=== PATIENT | female | born 1950 | race American Indian/Alaskan Native ===

== ENCOUNTER 2016-12-13 14:02 | Outpatient (CLI) | payer MEDICARE ==
--- NOTE | 2016-12-13 14:54 | Ultrasound Report ---
ULTRASOUND RENAL BILATERAL HISTORY: Chronic kidney disease. TECHNIQUE: transabdominal ultrasound with color Doppler interrogation. FINDINGS: Both kidneys are slightly atrophic measuring 7-8 cm in length. There is no evidence for calculus, mass, hydronephrosis or perinephric fluid. No significant cystic disease. The bladder is partially empty but unremarkable. IMPRESSION: Chronic renal parenchymal disease. No obstructive uropathy.
== END 2016-12-13 14:03 | disposition home or self-care (01) ==
LOC: US 14:02
PROVIDERS: ATTEND Internal Medicine Nephrology
DX: R94.4 Abnormal results of kidney function studies (principal); I10 Essential (primary) hypertension; I73.9 Peripheral vascular disease, unspecified
CPT/HCPCS: 76770

== ENCOUNTER 2016-12-31 12:49 | Inpatient (IN) | payer MEDICARE ==
[2016-12-31] MEDS ORDERED: NACL 0.9% 500 ML 500 ML IV ONE (13:30)
[2016-12-31 14:15] LABS: Basophils % (Auto) 0.5 % (0.0-1.8); Eosinophils % (Auto) 0.3 % (0.0-4.3); Hematocrit 31.7 % (30.3-42.9); Hemoglobin 9.8 gm/dl (10.1-14.3); Mean Corpuscular HGB Conc 31 % (30-34); Mean Corpuscular Volume 78 fl (79-97); Platelet Count 251 K/mm3 (140-440); Red Blood Count 4.07 M/mm3 (3.65-5.03); Red Cell Distribution Width 17.1 % (13.2-15.2); White Blood Count 12.9 K/mm3 (4.5-11.0)
[2016-12-31 14:16] LABS: INR 1.13 (0.87-1.13)
[2016-12-31 14:24] LABS: Albumin 2.7 g/dL (3.9-5); Albumin/Globulin Ratio 0.5 %; BUN/Creatinine Ratio 17.33; Bilirubin,Total 0.4 mg/dL (0.1-1.2); Calcium 9.1 mg/dL (8.4-10.2); Chloride 95.7 mmol/L (98-107); Potassium 4.4 mmol/L (3.6-5.0); Total Protein 8.5 g/dL (6.3-8.2)
[2016-12-31 14:38] LABS: Mean Corpuscular Hemoglobin 24 pg (28-32)
--- NOTE | 2016-12-31 14:55 | XRay Report ---
Single view chest History: Possible sepsis. Findings: Low volume lungs. Normal cardiomediastinal silhouette. Trachea is midline. No consolidation, pneumothorax or pleural effusion. Impression: No acute cardiopulmonary findings.
[2016-12-31] MEDS ORDERED: VANCOMYCIN/NS 1 GM/250 ML 1 GM/250 ML BAG IV ONE (15:03)
--- NOTE | 2016-12-31 15:45 | Emergency Department Report ---
- General Chief Complaint: Wound/Laceration Stated Complaint: MAGGOT IN ORGANS Time Seen by Provider: 12/31/16 15:40 Source: family, EMS Mode of arrival: Wheelchair Limitations: Other - History of Present Illness Initial Comments: PATIENT BROUGHT BY EMS AFTER A VISIT BY A [facility] NURSE WHO SHE INDICATED THAT PATIENT NEED TO BE TRANSFER TO THE ER BECAUSE OF A WET GANGRENE OF THE RT FOOT. PATIENT IS ALREADY SCHEDULED BY DR LOPEZ FOR ABOVE KNEE AMBUTATION. -: Gradual, days(s) Location: other Extremity Location: Right: Foot (WET FOOT GANGRENE) Patient Tetanus UTD: Yes Associated Symptoms: nausea/vomiting, fever (PATIENT SENT BY [facility]ASC[facility] FOR ABOVE KNEE AMBUTATION, C/O LEFT FOOT TURNING BLACK). denies: loss of feeling/numbness , suspect foreign body present - Related Data Home Medications Medication Instructions Recorded Confirmed Last Taken Aspirin [Aspirin TAB] 325 mg PO QDAY 08/04/15 12/25/16 08/03/15 Atorvastatin Calcium [Lipitor] 20 mg PO QHS 08/04/15 12/25/16 08/03/15 Citalopram [celeXA] 20 mg PO DAILY 08/04/15 12/25/16 08/03/15 Colchicine 0.6 mg PO DAILY 08/04/15 12/25/16 08/03/15 Docusate Sodium [Colace CAP] 100 mg PO BID 08/04/15 12/25/16 Unknown Donepezil [Aricept] 5 mg PO QDAY 08/04/15 12/25/16 08/03/15 Ferrous Sulfate [Feosol 325 MG tab] 325 mg PO QDAY 08/04/15 12/25/16 08/03/15 Glimepiride [Amaryl] 2 mg PO BID 08/04/15 12/25/16 08/03/15 Insulin Detemir [Levemir VIAL] 35 unit SQ QHS 08/04/15 12/25/16 Unknown Linagliptin [Tradjenta] 5 mg PO QDAY 08/04/15 12/25/16 08/03/15 Losartan [Cozaar] 100 mg PO QDAY 08/04/15 12/25/16 08/03/15 Memantine HCl [Namenda] 10 mg PO BID 08/04/15 12/25/16 08/03/15 Multivit with Calcium,Iron,Min 1 tab PO DAILY 08/04/15 12/25/16 08/03/15 [Multiple Vitamins For Women] Pantoprazole [Protonix TAB] 40 mg PO QDAY 08/04/15 12/25/16 08/03/15 oxyCODONE [Roxicodone TAB] 10 mg PO QDAY 08/04/15 12/25/16 08/03/15 Cyclobenzaprine [Flexeril] 10 mg PO QDAY 12/25/16 12/25/16 Unknown Insulin Regular, Human [HumuLIN R] 0 unit SQ ACHS 12/25/16 12/25/16 Unknown Melatonin/Pyridoxine [Melatonin 3 3 mg PO QHS 12/25/16 12/25/16 Unknown mg Tablet] Promethazine HCl [Promethazine INJ] 25 mg IM Q6H PRN 12/25/16 12/25/16 Unknown Allergies Allergy/AdvReac Type Severity Reaction Status Date / Time No Known Allergies Allergy Unverified 08/04/15 08:20 ED Review of Systems ROS: Stated complaint: MAGGOT IN ORGANS Other details as noted in HPI Constitutional: fever Eyes: denies: eye pain, eye discharge, vision change Respiratory: no symptoms reported Cardiovascular: denies: chest pain, palpitations Gastrointestinal: nausea Genitourinary: denies: urgency, dysuria, discharge Neurological: denies: headache, weakness, paresthesias ED Past Medical Hx - Past Medical History Hx Hypertension: Yes Hx CVA: Yes Hx Diabetes: Yes Hx GERD: Yes Hx Renal Disease: Yes (CKD) Hx Asthma: Yes (gout) Hx HIV: No Additional medical history: hyperlipidemia, SAH, hypokalemia, diabetic neuropathy, aphasia, insomnia, gastric ulcer with hemorrhage. - Social History Smoking Status: Never Smoker Substance Use Type: None - Medications Home Medications: Home Medications Medication Instructions Recorded Confirmed Last Taken Type Aspirin [Aspirin TAB] 325 mg PO QDAY 08/04/15 12/25/16 08/03/15 History Atorvastatin Calcium [Lipitor] 20 mg PO QHS 08/04/15 12/25/16 08/03/15 History Citalopram [celeXA] 20 mg PO DAILY 08/04/15 12/25/16 08/03/15 History Colchicine 0.6 mg PO DAILY 08/04/15 12/25/1616 History Docusate Sodium [Colace CAP] 100 mg PO BID 08/04/15 12/25/16 Unknown History Donepezil [Aricept] 5 mg PO QDAY 08/04/15 12/25/16 08/03/15 History Ferrous Sulfate [Feosol 325 MG tab] 325 mg PO QDAY 08/04/15 12/25/16 08/03/15 History Glimepiride [Amaryl] 2 mg PO BID 08/04/15 12/25/16 08/03/15 History Insulin Detemir [Levemir VIAL] 35 unit SQ QHS 08/04/15 12/25/16 Unknown History Linagliptin [Tradjenta] 5 mg PO QDAY 08/04/15 12/25/16 08/03/15 History Losartan [Cozaar] 100 mg PO QDAY 08/04/15 12/25/16 08/03/15 History Memantine HCl [Namenda] 10 mg PO BID 08/04/15 12/25/16 08/03/15 History Multivit with Calcium,Iron,Min 1 tab PO DAILY 08/04/15 12/25/16 08/03/15 History [Multiple Vitamins For Women] Pantoprazole [Protonix TAB] 40 mg PO QDAY 08/04/15 12/25/16 08/03/15 History oxyCODONE [Roxicodone TAB] 10 mg PO QDAY 08/04/15 12/25/16 08/03/15 History Cyclobenzaprine [Flexeril] 10 mg PO QDAY 12/25/16 12/25/16 Unknown History Insulin Regular, Human [HumuLIN R] 0 unit SQ ACHS 12/25/16 12/25/16 Unknown History Melatonin/Pyridoxine [Melatonin 3 3 mg PO QHS 12/25/16 12/25/16 Unknown History mg Tablet] Promethazine HCl [Promethazine INJ] 25 mg IM Q6H PRN 12/25/16 12/25/16 Unknown History ED Physical Exam - General Limitations: Other (STROKE) General appearance: alert, in no apparent distress - Head Head exam: Present: atraumatic - Eye Eye exam: Present: normal appearance - Respiratory Respiratory exam: Present: normal lung sounds bilaterally. Absent: respiratory distress - Cardiovascular Cardiovascular Exam: Present: regular rate, normal rhythm. Absent: systolic murmur, diastolic murmur, rubs, gallop - GI/Abdominal GI/Abdominal exam: Present: soft. Absent: tenderness, guarding, rebound, rigid , pulsatile mass - Neurological Exam Neurological exam: Present: alert, CN II-XII intact (LEFT SIDED WEAKNESS CHRONIC DUE TO PREVIOUS STROKE) - Skin Skin exam: Present: warm ED Course Vital Signs 12/31/16 12/31/16 12/31/16 13:46 15:35 16:51 Temperature 99.4 F 98.1 F Pulse Rate 92 H 85 Respiratory 16 16 16 Rate Blood Pressure 150/75 154/71 [Left] O2 Sat by Pulse 99 99 99 Oximetry - Reevaluation(s) Reevaluation #1: 12/31/16 15:47 PATIENT IS ALERT AND IN NO ACUTE DISTRESS. ED Medical Decision Making - Lab Data Result diagrams: 12/31/16 13:44 12/31/16 13:44 - EKG Data Rate: normal - Radiology Data CXR WITH NO ACUTE ABNORMALITY - Medical Decision Making DISCUSS WITH GABRIELA MA WITH DR LOPEZ WHO CAME TO SEE THE PATIENT AND WANT THE PATIENT TO BE ADMITTED FOR IV ANTIBIOTICS AND TO PROCEED WITH SURGERY SCHEDULED UNLESS CONDITION DETERIORATED. Critical care attestation.: If time is entered above; I have spent that time in minutes in the direct care of this critically ill patient, excluding procedure time. ED Disposition Clinical Impression: Gangrene of right foot Disposition: OP ADMIT IP TO THIS HOSP Is pt being admited?: Yes Does the pt Need Aspirin: No Condition: Fair Referrals: PRIMARY CARE, [Primary Care Provider] - 3-5 Days Time of Disposition: 17:32
--- NOTE | 2016-12-31 18:28 | Consultation ---
History of Present Illness - Reason for Consult Consult date: 12/31/16 Peripheral Vascular Disease with Right Lower Extremity Gangrene Requesting physician: GARRICK PATEL - History of Present Illness This patient is a 66-year-old female that presented to the emergency room with gangrenous changes to her right lower extremity. She has known peripheral arterial disease, and is scheduled for an [id number] amputation to be performed on 01/02/2017. The patient was noted to have a maggot infestation of her wounds, and was sent to the emergency room for further evaluation. She was noted have a leukocytosis and a vascular surgery consult has been requested to further evaluate. The patient is a poor historian, and the history has been taken from the patient 's family member at the bedside. She denies pain, but the family member states that she is uncomfortable with any manipulation. Past History Past Medical History: diabetes, hypertension, hyperlipidemia, PVD, stroke, other (dementia) Past Surgical History: Other (Right lower Hair angiography with atherectomy and angioplasty to the popliteal & the anterior tibial arteries) Social history: single. denies: smoking, alcohol abuse Family history: diabetes Medications and Allergies Allergies Allergy/AdvReac Type Severity Reaction Status Date / Time No Known Allergies Allergy Unverified 08/04/15 08:20 Home Medications Medication Instructions Recorded Confirmed Last Taken Type Aspirin [Aspirin TAB] 325 mg PO QDAY 08/04/15 12/31/16 08/03/15 History Atorvastatin Calcium [Lipitor] 20 mg PO QHS 08/04/15 12/31/16 08/03/15 History Citalopram [celeXA] 20 mg PO DAILY 08/04/15 12/31/16 08/03/15 History Colchicine 0.6 mg PO DAILY 08/04/15 12/31/16 08/03/15 History Docusate Sodium [Colace CAP] 100 mg PO BID 08/04/15 12/31/16 Unknown History Donepezil [Aricept] 10 mg PO QDAY 08/04/15 12/31/16 08/03/15 History Ferrous Sulfate [Feosol 325 MG tab] 325 mg PO QDAY 08/04/15 12/31/16 08/03/15 History Glimepiride [Amaryl] 2 mg PO BID 08/04/15 12/31/16 08/03/15 History Insulin Detemir [Levemir VIAL] 35 unit SQ QHS 08/04/15 12/31/16 Unknown History Linagliptin [Tradjenta] 5 mg PO QDAY 08/04/15 12/31/16 08/03/15 History Memantine HCl [Namenda] 10 mg PO BID 08/04/15 12/31/16 08/03/15 History Multivit with Calcium,Iron,Min 1 tab PO DAILY 08/04/15 12/31/16 08/03/15 History [Multiple Vitamins For Women] Pantoprazole [Protonix TAB] 40 mg PO QDAY 08/04/15 12/31/16 08/03/15 History Cyclobenzaprine [Flexeril 10 MG 10 mg PO QDAY 12/25/16 12/31/16 Unknown History TAB] Insulin Regular, Human [HumuLIN R] 0 unit SQ ACHS 12/25/16 12/31/16 Unknown History Melatonin/Pyridoxine [Melatonin 3 3 mg PO QHS 12/25/16 12/31/16 Unknown History mg Tablet] Valsartan [Diovan] 160 mg PO BID tablet 01/04/17 Unknown Rx oxyCODONE /ACETAMINOPHEN [Percocet 1 tab PO Q6H PRN #7 tablet 01/04/17 Unknown Rx 5/325 mg] Active Meds: Active Medications Cefazolin Sodium (Ancef/Sterile Water 2 Gm/20 Ml) 2 gm in 20 mls @ 80 mls/hr IV PREOP NR PRN Reason: Protocol Stop: 01/02/17 23:59 Sodium Chloride (Nacl 0.9% 1000 Ml) 1,000 mls @ 42 mls/hr IV DIRECT GRETCHEN Review of Systems ROS unobtainable: due to mental status Exam - Constitutional General appearance: Present: no acute distress - EENT Eyes: Present: EOM intact ENT: hearing intact - Respiratory Respiratory effort: normal - Extremities Extremities: abnormal (is a contracted right knee she has extensive necrosis to the dorsum of her right foot including several toes there is a dark fluid- filled blister on the volar aspect of her foot she has a dark likely deep tissue injury to her right heel) - Psychiatric Psychiatric: appropriate mood/affect (flat affect), no intact judgment & insight - Additional findings Additional findings: Results - Labs CBC & Chem 7: 01/04/17 05:05 01/04/17 05:05 Assessment and Plan Patient clearly has gangrenous changes to her right lower extremity. She has a leukocytosis with a black fluid filled blister on the volar aspect of her right foot. Discussed with the emergency room physician, patient will be admitted to hospitalist service to begin antibiotics. An x-ray has been ordered to evaluate for gas gangrene. If present, her surgery may need to be moved up. Otherwise, we'll plan on surgery on Saturday as originally scheduled. - Patient Problems (1) Atherosclerosis of [place] arteries of the extremities with gangrene Current Visit: No Status: Acute Qualifiers: Peripheral atherosclerosis location: lower extremity Laterality: right Qualified Code(s): I70.261 - Atherosclerosis of [place] arteries of extremities with gangrene, right leg
--- NOTE | 2016-12-31 19:47 | XRay Report ---
FINAL REPORT PROCEDURE: XR FOOT 2V RT TECHNIQUE: RIGHT foot radiographs, AP and lateral views. Please note history states right foot, please note technologist did not suzette images for laterality. HISTORY: Gangrene, question gas. COMPARISON: No prior studies are available for comparison. FINDINGS: Fracture (s) and/or Dislocation(s): None . Alignment: Extension of the digits limits evaluation. Joint space(s): Mild diffuse narrowing of the distal interphalangeal joints. Narrowing of the tibiotalar joint. Soft tissues: Diffuse soft tissue swelling with moderate scattered foci of soft tissue air. Vascular calcification. Bone mineralization: Moderate osteopenia. Foreign bodies: None. Calcaneal spurring: None. IMPRESSION: Moderate osteopenia and degenerative change. Diffuse soft tissue swelling with scattered foci of soft tissue air. Consider cellulitis, with air concern is for possible more aggressive infection including gangrene/infection with gas-forming organism. With vascular calcification consider patient could be diabetic. Recommend further evaluation including CT scan or MRI if there is continued clinical concern and patient has no contraindication to MRI.
--- NOTE | 2016-12-31 22:03 | History and Physical Report ---
History of Present Illness Date of examination: 12/31/16 Date of admission: 12/31/16 17:43 Chief complaint: Right foot gangrene one week History of present illness: History of present illness: 66-year-old -S[place] female with multiple medical problems including hypertension insulin-dependent diabetes dementia peripheral arterial disease sent in from [facility] for gangrene of the right foot. His urine going on for 1 week. Patient was evaluated by vascular surgery in the ER. As per vascular surgery patient may need a below- knee amputation. No fever no chills. Review of Systems ROS: Stated complaint: MAGGOT IN ORGANS Other details as noted in HPI Review of System: Constitutional: no fever, no chills, no weight loss Ears, eyes, nose, mouth and throat: no nasal congestion, no nasal discharge, no sinus pressure, no vision change, no red eye. Neck: No neck pain or rigidity. Cardiovascular: No chest pain, no orthopnea, no palpitations, no leg swelling Respiratory: No shortness of breath, no cough, no congestion, no wheezing Gastrointestinal: no abdominal pain, no nausea, no vomiting Genitourinary : no dysuria, no hematuria Musculoskeletal: no joint swelling or muscle ache Integumentary: no rash, no pruritis Neurological: no parathesias, no numbness, no tingling Endocrine: no cold or heat intolerance, no polyuria or polydipsia Hematologic/Lymphatic: no easy bruising, no easy bleeding, no gland swelling Allergic/Immunologic: no urticaria, no angioedema. ED Past Medical Hx - Past Medical History Hx Hypertension: Yes Hx CVA: Yes Hx Diabetes: Yes Hx GERD: Yes Hx Renal Disease: Yes (CKD) Hx Asthma: Yes (gout) Hx HIV: No Additional medical history: hyperlipidemia, SAH, hypokalemia, diabetic neuropathy, aphasia, insomnia, gastric ulcer with hemorrhage. - Social History Smoking Status: Never Smoker Substance Use Type: None - Medications Home Medications: Home Medications Medication Instructions Recorded Confirmed Last Taken Type Aspirin [Aspirin TAB] 325 mg PO QDAY 08/04/15 12/25/16 08/03/15 History Atorvastatin Calcium [Lipitor] 20 mg PO QHS 08/04/15 12/25/16 08/03/15 History Citalopram [celeXA] 20 mg PO DAILY 08/04/15 12/25/16 08/03/15 History Colchicine 0.6 mg PO DAILY 08/04/15 12/25/16 08/03/15 History Docusate Sodium [Colace CAP] 100 mg PO BID 08/04/15 12/25/16 Unknown History Donepezil [Aricept] 5 mg PO QDAY 08/04/15 12/25/16 08/03/15 History Ferrous Sulfate [Feosol 325 MG tab] 325 mg PO QDAY 08/04/15 12/25/16 08/03/15 History Glimepiride [Amaryl] 2 mg PO BID 08/04/15 12/25/16 08/03/15 History Insulin Detemir [Levemir VIAL] 35 unit SQ QHS 08/04/15 12/25/16 Unknown History Linagliptin [Tradjenta] 5 mg PO QDAY 08/04/15 12/25/16 08/03/15 History Losartan [Cozaar] 100 mg PO QDAY 08/04/15 12/25/16 08/03/15 History Memantine HCl [Namenda] 10 mg PO BID 08/04/15 12/25/16 08/03/15 History Multivit with Calcium,Iron,Min 1 tab PO DAILY 08/04/15 12/25/16 08/03/15 History [Multiple Vitamins For Women] Pantoprazole [Protonix TAB] 40 mg PO QDAY 08/04/15 12/25/16 08/03/15 History oxyCODONE [Roxicodone TAB] 10 mg PO QDAY 08/04/15 12/25/16 08/03/15 History Cyclobenzaprine [Flexeril] 10 mg PO QDAY 12/25/16 12/25/16 Unknown History Insulin Regular, Human [HumuLIN R] 0 unit SQ ACHS 12/25/16 12/25/16 Unknown History Melatonin/Pyridoxine [Melatonin 3 3 mg PO QHS 12/25/16 12/25/16 Unknown History mg Tablet] Promethazine HCl [Promethazine INJ] 25 mg IM Q6H PRN 12/25/16 12/25/16 Unknown History Medications and Allergies Allergies Allergy/AdvReac Type Severity Reaction Status Date / Time No Known Allergies Allergy Unverified 08/04/15 08:20 Home Medications Medication Instructions Recorded Confirmed Last Taken Type Aspirin [Aspirin TAB] 325 mg PO QDAY 08/04/15 12/31/16 08/03/15 History Atorvastatin Calcium [Lipitor] 20 mg PO QHS 08/04/15 12/31/16 08/03/15 History Citalopram [celeXA] 20 mg PO DAILY 08/04/15 12/31/16 08/03/15 History Colchicine 0.6 mg PO DAILY 08/04/15 12/31/16 08/03/15 History Docusate Sodium [Colace CAP] 100 mg PO BID 08/04/15 12/31/16 Unknown History Donepezil [Aricept] 10 mg PO QDAY 08/04/15 12/31/16 08/03/15 History Ferrous Sulfate [Feosol 325 MG tab] 325 mg PO QDAY 08/04/15 12/31/16 08/03/15 History Glimepiride [Amaryl] 2 mg PO BID 08/04/15 12/31/16 08/03/15 History Insulin Detemir [Levemir VIAL] 35 unit SQ QHS 08/04/15 12/31/16 Unknown History Linagliptin [Tradjenta] 5 mg PO QDAY 08/04/15 12/31/16 08/03/15 History Losartan [Cozaar] 100 mg PO QDAY 08/04/15 12/31/16 08/03/15 History Memantine HCl [Namenda] 10 mg PO BID 08/04/15 12/31/16 08/03/15 History Multivit with Calcium,Iron,Min 1 tab PO DAILY 08/04/15 12/31/16 08/03/15 History [Multiple Vitamins For Women] Pantoprazole [Protonix TAB] 40 mg PO QDAY 08/04/15 12/31/16 08/03/15 History oxyCODONE [Roxicodone TAB] 10 mg PO QDAY 08/04/15 12/31/16 08/03/15 History Cyclobenzaprine [Flexeril] 10 mg PO QDAY 12/25/16 12/31/16 Unknown History Insulin Regular, Human [HumuLIN R] 0 unit SQ ACHS 12/25/16 12/31/16 Unknown History Melatonin/Pyridoxine [Melatonin 3 3 mg PO QHS 12/25/16 12/31/16 Unknown History mg Tablet] Promethazine HCl [Promethazine INJ] 25 mg IM Q6H PRN 12/25/16 12/31/16 Unknown History Exam - Physical Exam Narrative exam: Lying comfortable in bed - Constitutional Vitals: Temp Pulse Resp BP Pulse Ox 98.5 F 74 18 130/70 99 12/31/16 19:07 12/31/16 19:07 12/31/16 19:07 12/31/16 19:07 12/31/16 18:00 General appearance: Present: no acute distress, well-nourished - EENT Eyes: Present: PERRL ENT: hearing intact, clear oral mucosa - Neck Neck: Present: supple, normal ROM - Respiratory Respiratory effort: normal Respiratory: bilateral: CTA - Cardiovascular Heart rate: 80 Rhythm: regular (80) Heart Sounds: Present: S1 & S2. Absent: rub, click - Extremities Extremities: pulses symmetrical, No edema, abnormal (right foot dark and gangrenous up to the ankle) Peripheral Pulses: abnormal (weakly felt) - Abdominal General gastrointestinal: Present: soft, non-tender, non-distended, normal bowel sounds Female genitourinary: Present: normal - Rectal Rectal Exam: deferred - Integumentary Integumentary: Present: clear, warm, dry - Musculoskeletal Musculoskeletal: gait normal, strength equal bilaterally - Psychiatric Psychiatric: appropriate mood/affect, intact judgment & insight - Neurologic Neurologic: CNII-XII intact, moves all extremities - Allied Health Allied health notes reviewed: nursing Results - Labs CBC & Chem 7: 12/31/16 13:44 12/31/16 13:44 Labs: Laboratory Last Values WBC 12.9 K/mm3 (4.5-11.0) H 12/31/16 13:44 RBC 4.07 M/mm3 (3.65-5.03) 12/31/16 13:44 Hgb 9.8 gm/dl (10.1-14.3) L 12/31/16 13:44 Hct 31.7 % (30.3-42.9) 12/31/16 13:44 MCV 78 fl (79-97) L 12/31/16 13:44 MCH 24 pg (28-32) L 12/31/16 13:44 MCHC 31 % (30-34) 12/31/16 13:44 RDW 17.1 % (13.2-15.2) H 12/31/16 13:44 Plt Count 251 K/mm3 (140-440) 12/31/16 13:44 Lymph % (Auto) 10.8 % (13.4-35.0) L 12/31/16 13:44 Real % (Auto) 4.9 % (0.0-7.3) 12/31/16 13:44 Eos % (Auto) 0.3 % (0.0-4.3) 12/31/16 13:44 Baso % (Auto) 0.5 % (0.0-1.8) 12/31/16 13:44 Lymph # 1.4 K/mm3 (1.2-5.4) 12/31/16 13:44 Real # 0.6 K/mm3 (0.0-0.8) 12/31/16 13:44 Eos # 0.0 K/mm3 (0.0-0.4) 12/31/16 13:44 Baso # 0.1 K/mm3 (0.0-0.1) 12/31/16 13:44 Seg Neutrophils % 83.5 % (40.0-70.0) H 12/31/16 13:44 Seg Neutrophils # 10.8 K/mm3 (1.8-7.7) H 12/31/16 13:44 PT 14.4 Sec. (12.2-14.9) 12/31/16 13:44 INR 1.13 (0.87-1.13) 12/31/16 13:44 VBG pH 7.415 (7.320-7.420) 12/31/16 13:44 Sodium 137 mmol/L (137-145) 12/31/16 13:44 Potassium 4.4 mmol/L (3.6-5.0) 12/31/16 13:44 Chloride 95.7 mmol/L (98-107) L 12/31/16 13:44 Carbon Dioxide 25 mmol/L (22-30) 12/31/16 13:44 Anion Gap 21 mmol/L 12/31/16 13:44 BUN 26 mg/dL (7-17) H 12/31/16 13:44 Creatinine 1.5 mg/dL (0.7-1.2) H 12/31/16 13:44 Estimated GFR 42 ml/min 12/31/16 13:44 BUN/Creatinine Ratio 17.33 % 12/31/16 13:44 Glucose 381 mg/dL (65-100) H 12/31/16 13:44 Lactic Acid 2.50 mmol/L (0.7-2.0) H* 12/31/16 16:57 Calcium 9.1 mg/dL (8.4-10.2) 12/31/16 13:44 Total Bilirubin 0.40 mg/dL (0.1-1.2) 12/31/16 13:44 AST 34 units/L (5-40) 12/31/16 13:44 ALT 34 units/L (7-56) 12/31/16 13:44 Alkaline Phosphatase 233 units/L (35-129) H 12/31/16 13:44 Total Protein 8.5 g/dL (6.3-8.2) H 12/31/16 13:44 Albumin 2.7 g/dL (3.9-5) L 12/31/16 13:44 Albumin/Globulin Ratio 0.5 % 12/31/16 13:44 Assessment and Plan Advance Directives: Yes (full code) VTE prophylaxis?: Chemical Plan of care discussed with patient/family: Yes - Patient Problems (1) Gangrene of right foot Current Visit: Yes Status: Acute Plan to address problem: Patient will need a below-knee amputation. Discussed with vascular surgery Delon. We will start her on vancomycin and Unasyn. (2) Atherosclerosis of [place] arteries of the extremities with gangrene Current Visit: No Status: Acute Qualifiers: Peripheral atherosclerosis location: lower extremity Laterality: right Qualified Code(s): I70.261 - Atherosclerosis of [place] arteries of extremities with gangrene, right leg Plan to address problem: Patient needs a below-knee amputation for preservation of her life. (3) Anemia Current Visit: Yes Status: Chronic Qualifiers: Anemia type: A Iron deficiency anemia type: I Vitamin B12 deficiency anemia type: V Folate deficiency anemia type: F Bone marrow failure anemia type: B Hemolytic anemia type: H Other causes of anemia: O Chronic kidney disease stage: C Plan to address problem: Chronic anemia. Iron studies ordered. B12 and folic acid levels ordered (4) IDDM (insulin dependent diabetes mellitus) Current Visit: Yes Status: Chronic Plan to address problem: Continue Levemir 35 units subcutaneous at bedtime and oral hypoglycemics. We will stop glimepiride. We will increase the Levemir to 50 units subcutaneous daily at bedtime and regular insulin with each meal and coverage. Also check hemoglobin A1c. (5) Hypertension Current Visit: Yes Status: Chronic Qualifiers: Hypertension type: essential hypertension Qualified Code(s): I10 - Essential (primary) hypertension Plan to address problem: Continue losartan 100 mg once a day (6) Hyperlipidemia Current Visit: Yes Status: Chronic Qualifiers: Hyperlipidemia type: mixed hyperlipidemia Qualified Code(s): E78.2 - Mixed hyperlipidemia Plan to address problem: Continue atorvastatin 20 mg by mouth daily at bedtime (7) Depression Current Visit: Yes Status: Chronic Qualifiers: Depression Type: unspecified Major depression recurrence: M Active/ Remission status: A Major depression episode severity: M Psychotic features : P Trimester: T Qualified Code(s): F32.9 - Major depressive disorder, single episode, unspecified Plan to address problem: Continues citalopram 20 mg once a day (8) Dementia Current Visit: Yes Status: Chronic Qualifiers: Dementia type: vascular dementia Alzheimer's disease onset: A Dementia behavioral disturbance: D Plan to address problem: Continue Aricept 5 mg once a day and Namenda 10 mg twice a day. (9) Malnutrition of moderate degree Current Visit: Yes Status: Chronic Plan to address problem: Dietary consult requested albumin is 2.7 (10) DVT prophylaxis Current Visit: Yes Status: Acute Plan to address problem: Lovenox 40 mg subcutaneous daily
[2016-12-31] MEDS ORDERED: DULCOLAX PR PRN (22:13)
[2016-12-31] MEDS ORDERED: MILK OF MAGNESIA PO PRN (22:13)
[2016-12-31] MEDS ORDERED: AMBIEN PO PRN (22:13)
[2016-12-31] MEDS ORDERED: ZOFRAN IV PRN (22:13)
[2016-12-31] MEDS ORDERED: TYLENOL PO PRN (22:13)
[2016-12-31] MEDS: DILAUDID IV PRN (23:00)
[2016-12-31] MEDS: NACL 0.45% 1000 ML 1,000 ML IV SCH (23:05)
[2016-12-31] MEDS: PEPCID IV SCH (23:26)
[2017-01-01] MEDS: DILAUDID IV PRN ×4 (03:27→22:21)
[2017-01-01 05:42] LABS: Basophils % (Auto) 0.6 % (0.0-1.8); Eosinophils % (Auto) 0.9 % (0.0-4.3); Hematocrit 29.1 % (30.3-42.9); Hemoglobin 9.2 gm/dl (10.1-14.3); Mean Corpuscular HGB Conc 32 % (30-34); Mean Corpuscular Volume 76 fl (79-97); Platelet Count 238 K/mm3 (140-440); Red Blood Count 3.82 M/mm3 (3.65-5.03); White Blood Count 12.3 K/mm3 (4.5-11.0)
[2017-01-01 05:46] LABS: Mean Corpuscular Hemoglobin 24 pg (28-32)
[2017-01-01 06:02] LABS: Albumin 2.6 g/dL (3.9-5); Albumin/Globulin Ratio 0.5 %; BUN/Creatinine Ratio 16.66; Bilirubin,Total 0.4 mg/dL (0.1-1.2); Calcium 8.9 mg/dL (8.4-10.2); Chloride 102.8 mmol/L (98-107); Potassium 3.9 mmol/L (3.6-5.0); Total Protein 7.9 g/dL (6.3-8.2)
[2017-01-01] MEDS: NOVOLOG SUB-Q SCH ×4 (07:45→22:29)
--- NOTE | 2017-01-01 08:54 | Consultation ---
History of Present Illness - Reason for Consult Consult date: 01/01/17 acute renal failure, chronic renal failure - History of Present Illness Patient is a 66-year-old AAF with history significant for DM type 2, Hypertension. morbis Obesity, hyperlipidemia, SAH, Diabetic neuropathy, PUD, CVA with right sided hemiparesis, bedbound status, Dementia, PAD and [place] resident was sent from [facility] for gangrene of the right foot. Patient is a very poor historian and unable to obtain any information from her. On admission her creatinine was 1.5 and has improved to 1.2 today. Past History Past Medical History: diabetes, hypertension, hyperlipidemia, stroke Medications and Allergies Allergies Allergy/AdvReac Type Severity Reaction Status Date / Time No Known Allergies Allergy Unverified 08/04/15 08:20 Home Medications Medication Instructions Recorded Confirmed Last Taken Type Aspirin [Aspirin TAB] 325 mg PO QDAY 08/04/15 12/31/16 08/03/15 History Atorvastatin Calcium [Lipitor] 20 mg PO QHS 08/04/15 12/31/16 08/03/15 History Citalopram [celeXA] 20 mg PO DAILY 08/04/15 12/31/16 08/03/15 History Colchicine 0.6 mg PO DAILY 08/04/15 12/31/16 08/03/15 History Docusate Sodium [Colace CAP] 100 mg PO BID 08/04/15 12/31/16 Unknown History Donepezil [Aricept] 10 mg PO QDAY 08/04/15 12/31/16 08/03/15 History Ferrous Sulfate [Feosol 325 MG tab] 325 mg PO QDAY 08/04/15 12/31/16 08/03/15 History Glimepiride [Amaryl] 2 mg PO BID 08/04/15 12/31/16 08/03/15 History Insulin Detemir [Levemir VIAL] 35 unit SQ QHS 08/04/15 12/31/16 Unknown History Linagliptin [Tradjenta] 5 mg PO QDAY 08/04/15 12/31/16 08/03/15 History Losartan [Cozaar] 100 mg PO QDAY 08/04/15 12/31/16 08/03/15 History Memantine HCl [Namenda] 10 mg PO BID 08/04/15 12/31/1608/03/16 History Multivit with Calcium,Iron,Min 1 tab PO DAILY 08/04/15 12/31/16 08/03/15 History [Multiple Vitamins For Women] Pantoprazole [Protonix TAB] 40 mg PO QDAY 08/04/15 12/31/16 08/03/15 History oxyCODONE [Roxicodone TAB] 10 mg PO QDAY 08/04/15 12/31/16 08/03/15 History Cyclobenzaprine [Flexeril] 10 mg PO QDAY 12/25/16 12/31/16 Unknown History Insulin Regular, Human [HumuLIN R] 0 unit SQ ACHS 12/25/16 12/31/16 Unknown History Melatonin/Pyridoxine [Melatonin 3 3 mg PO QHS 12/25/16 12/31/16 Unknown History mg Tablet] Promethazine HCl [Promethazine INJ] 25 mg IM Q6H PRN 12/25/16 12/31/16 Unknown History Active Meds: Active Medications Acetaminophen (Tylenol) 650 mg PO Q4H PRN PRN Reason: Pain MILD(1-3)/Fever >100.5/WILLSON Atorvastatin Calcium (Lipitor) 20 mg PO QHS GRETCHEN Bisacodyl (Dulcolax) 10 mg [place] QDAY PRN PRN Reason: Constipation unrelieved by MOM Citalopram Hydrobromide (Celexa) 20 mg PO DAILY [facility] Docusate Sodium (Colace) 100 mg PO BID GRETCHEN Enoxaparin Sodium (Lovenox) 40 mg SUB-Q QDAY [facility] Famotidine (Pepcid) 20 mg IV BID [facility] Last Admin: 12/31/16 23:26 Dose: 20 mg Hydromorphone HCl (Dilaudid) 1 mg IV Q3H PRN PRN Reason: Pain , Severe (7-10) Last Admin: 01/01/17 03:27 Dose: 1 mg Sodium Chloride (Nacl 0.45% 1000 Ml) 1,000 mls @ 75 mls/hr IV DIRECT [facility] Last Admin: 12/31/16 23:05 Dose: 75 mls/hr Insulin Aspart (Novolog) 0 units SUB-Q ACHS GRETCHEN PRN Reason: Protocol Insulin Detemir (Levemir) 50 units SUB-Q QHS GRETCHEN Linagliptin (Tradjenta) 5 mg PO QDAY GRETCHEN Losartan Potassium (Cozaar) 100 mg PO QDAY GRETCH[facility] Magnesium Hydroxide (Milk Of Magnesia) 30 ml PO Q4H PRN PRN Reason: Constipation Ondansetron HCl (Zofran) 4 mg IV Q8H PRN PRN Reason: N/V unrelieved by Reglan Oxycodone/Acetaminophen (Percocet 5/325) 1 tab PO Q6H PRN PRN Reason: Pain, Moderate (4-6) Zolpidem Tartrate (Ambien) 5 mg PO QHS PRN PRN Reason: Insomnia Review of Systems ROS unobtainable: due to mental status Exam - Vital Signs Vital signs: Vital Signs Temp Pulse Resp BP Pulse Ox 99.4 F 92 H 16 150/75 99 12/31/16 13:46 12/31/16 13:46 12/31/16 13:46 12/31/16 13:46 12/31/16 13:46 - General Appearance General appearance: well-developed, well-nourished, appears stated age, obese, other (no distress) EENT: ATNC, PERRL, mucous membranes moist, hearing intact Neck: Present: neck supple Respiratory: Clear to Ascultation Heart: regular, S1S2, no murmurs Gastrointestinal: Present: normoactive bowel sounds, obese. Absent: tenderness , distended Neurologic: no asterixis, other (right hemiparesis, some degree of aphasia noted ) Musculoskeletal: Present: other (right foot covered with dressing) Psychiatric: cooperative Results - Lab Results 01/01/17 05:06 01/01/17 05:06 Most recent lab results Calcium 8.9 mg/dL (8.4-10.2) 01/01/17 05:06 Assessment and Plan - Patient Problems (1) BRIA (acute kidney injury) Current Visit: Yes Status: Acute Plan to address problem: Acute Kidney Injury superimposed on CKD likely secondary to volume depletion. Creatinine has returned to her baseline. Continue IV fluids for now. (2) Gangrene of right foot Current Visit: Yes Status: Acute Plan to address problem: Followed by Vascular. (3) IDDM (insulin dependent diabetes mellitus) Current Visit: Yes Status: Chronic (4) Hypertension Current Visit: Yes Status: Chronic Qualifiers: Hypertension type: essential hypertension Qualified Code(s): I10 - Essential (primary) hypertension
--- NOTE | 2017-01-01 09:22 | Progress Note ---
Assessment and Plan Assessment and plan: 66-year-old -Surinamese female with multiple medical problems including hypertension insulin-dependent diabetes dementia peripheral arterial disease sent in from [facility] for gangrene of the right foot (1) Gangrene of right foot Current Visit: Yes Status: Acute Plan to address problem: planned for below-knee amputation on 01/02/17. Vascular surgery on board, continue empiric abx (2) Atherosclerosis of [place] arteries of the extremities with gangrene Current Visit: No Status: Acute Qualifiers: Peripheral atherosclerosis location: lower extremity Laterality: right Qualified Code(s): I70.261 - Atherosclerosis of [place] arteries of extremities with gangrene, right leg Plan to address problem: Patient needs a below-knee amputation for preservation of her life. (3) Anemia Current Visit: Yes Status: Chronic Qualifiers: Anemia type: A Iron deficiency anemia type: I Vitamin B12 deficiency anemia type: V Folate deficiency anemia type: F Bone marrow failure anemia type: B Hemolytic anemia type: H Other causes of anemia: O Chronic kidney disease stage: C Plan to address problem: Chronic anemia. Iron studies ordered. B12 and folic acid levels ordered (4) IDDM (insulin dependent diabetes mellitus) Current Visit: Yes Status: Chronic Plan to address problem: hypogylcemic this am, will reduce levemir dose (5) Accelerated Hypertension Current Visit: Yes Status: Chronic Qualifiers: Hypertension type: essential hypertension Qualified Code(s): I10 - Essential (primary) hypertension Plan to address problem: BP elevated today will optimize meds (6) Hyperlipidemia Current Visit: Yes Status: Chronic Qualifiers: Hyperlipidemia type: mixed hyperlipidemia Qualified Code(s): E78.2 - Mixed hyperlipidemia Plan to address problem: Continue atorvastatin 20 mg by mouth daily at bedtime (7) Depression Current Visit: Yes Status: Chronic Qualifiers: Depression Type: unspecified Major depression recurrence: M Active/ Remission status: A Major depression episode severity: M Psychotic features : P Trimester: T Qualified Code(s): F32.9 - Major depressive disorder, single episode, unspecified Plan to address problem: Continues citalopram 20 mg once a day (8) Dementia Current Visit: Yes Status: Chronic Qualifiers: Dementia type: vascular dementia Alzheimer's disease onset: A Dementia behavioral disturbance: D Plan to address problem: Continue Aricept 5 mg once a day and Namenda 10 mg twice a day. (9) Malnutrition of moderate degree Current Visit: Yes Status: Chronic Plan to address problem: Dietary consult requested albumin is 2.7, encourage balanced diet rich in healthy fats and proteins (10) acute kidney injury/vasomotor nephropathy Resolving with IV fluids, creatinine improved today DVT prophylaxis Current Visit: Yes Status: Acute Plan to address problem: Lovenox 40 mg subcutaneous daily History Interval history: The patient denies chest pain, denies fever and denies chills, admits lacks of sensation in RLE, has not walked in years Hospitalist Physical - Physical exam Narrative exam: General appearance: Present: no acute distress, well-nourished - EENT Eyes: Present: PERRL ENT: hearing intact, clear oral mucosa - Neck Neck: Present: supple, normal ROM - Respiratory Respiratory effort: normal Respiratory: bilateral: CTA - Cardiovascular Heart rate: 80 Rhythm: regular (80) Heart Sounds: Present: S1 & S2. Absent: rub, click - Extremities Extremities: pulses symmetrical, No edema, abnormal (right foot dark and gangrenous up to the ankle) Peripheral Pulses: abnormal (weak) - Abdominal General gastrointestinal: Present: soft, non-tender, non-distended, normal bowel sounds Female genitourinary: Present: normal - Rectal Rectal Exam: deferred - Integumentary Integumentary: Present: clear, warm, dry - Musculoskeletal Musculoskeletal: gait normal, strength equal bilaterally - Psychiatric Psychiatric: appropriate mood/affect, intact judgment & insight - Neurologic Neurologic: CNII-XII intact, moves all extremities - Constitutional Vitals: Temp Pulse Resp BP Pulse Ox 98.9 F 101 H 20 175/68 97 01/01/17 07:10 01/01/17 07:10 01/01/17 07:10 01/01/17 07:10 01/01/17 07:10 General appearance: Present: no acute distress, well-nourished Results - Labs CBC & Chem 7: 01/01/17 05:06 01/01/17 05:06 Labs: Laboratory Last Values WBC 12.3 K/mm3 (4.5-11.0) H 01/01/17 05:06 RBC 3.82 M/mm3 (3.65-5.03) 01/01/17 05:06 Hgb 9.2 gm/dl (10.1-14.3) L 01/01/17 05:06 Hct 29.1 % (30.3-42.9) L 01/01/17 05:06 MCV 76 fl (79-97) L 01/01/17 05:06 MCH 24 pg (28-32) L 01/01/17 05:06 MCHC 32 % (30-34) 01/01/17 05:06 RDW 17.0 % (13.2-15.2) H 01/01/17 05:06 Plt Count 238 K/mm3 (140-440) 01/01/17 05:06 Lymph % (Auto) 11.6 % (13.4-35.0) L 01/01/17 05:06 [place] % (Auto) 5.4 % (0.0-7.3) 01/01/17 05:06 Eos % (Auto) 0.9 % (0.0-4.3) 01/01/17 05:06 Baso % (Auto) 0.6 % (0.0-1.8) 01/01/17 05:06 Lymph # 1.4 K/mm3 (1.2-5.4) 01/01/17 05:06 [place] # 0.7 K/mm3 (0.0-0.8) 01/01/17 05:06 Eos # 0.1 K/mm3 (0.0-0.4) 01/01/17 05:06 Baso # 0.1 K/mm3 (0.0-0.1) 01/01/17 05:06 Seg Neutrophils % 81.5 % (40.0-70.0) H 01/01/17 05:06 Seg Neutrophils # 10.1 K/mm3 (1.8-7.7) H 01/01/17 05:06 PT 14.4 Sec. (12.2-14.9) 12/31/16 13:44 INR 1.13 (0.87-1.13) 12/31/16 13:44 VBG pH 7.415 (7.320-7.420) 12/31/16 13:44 Sodium 142 mmol/L (137-145) 01/01/17 05:06 Potassium 3.9 mmol/L (3.6-5.0) 01/01/17 05:06 Chloride 102.8 mmol/L (98-107) 01/01/17 05:06 Carbon Dioxide 22 mmol/L (22-30) 01/01/17 05:06 Anion Gap 21 mmol/L 01/01/17 05:06 BUN 20 mg/dL (7-17) H 01/01/17 05:06 Creatinine 1.2 mg/dL (0.7-1.2) 01/01/17 05:06 Estimated GFR 55 ml/min 01/01/17 05:06 BUN/Creatinine Ratio 16.66 % 01/01/17 05:06 Glucose 56 mg/dL (65-100) L 01/01/17 05:06 POC Glucose 127 (70-105) H 12/31/16 21:57 Hemoglobin A1c 9.2 % (4-6) H 01/01/17 05:06 Lactic Acid 2.50 mmol/L (0.7-2.0) H* 12/31/16 16:57 Calcium 8.9 mg/dL (8.4-10.2) 01/01/17 05:06 Total Bilirubin 0.40 mg/dL (0.1-1.2) 01/01/17 05:06 AST 22 units/L (5-40) 01/01/17 05:06 ALT 25 units/L (7-56) 01/01/17 05:06 Alkaline Phosphatase 189 units/L (35-129) H 01/01/17 05:06 Total Protein 7.9 g/dL (6.3-8.2) 01/01/17 05:06 Albumin 2.6 g/dL (3.9-5) L 01/01/17 05:06 Albumin/Globulin Ratio 0.5 % 01/01/17 05:06
[2017-01-01] MEDS: LOVENOX SUB-Q SCH (09:28)
[2017-01-01] MEDS: celeXA PO SCH (09:29)
[2017-01-01] MEDS: COLACE PO SCH ×2 (09:30→22:32)
[2017-01-01] MEDS: TRADJENTA PO SCH (09:33)
[2017-01-01] MEDS: PEPCID IV SCH ×2 (09:34→22:22)
[2017-01-01] MEDS: DIOVAN PO SCH ×2 (09:36→22:30)
[2017-01-01] MEDS ORDERED: COZAAR PO SCH (10:00)
--- NOTE | 2017-01-01 13:07 | Progress Note ---
Assessment and Plan Planned right [id number] amputation tomorrow. Subjective Date of service: 01/01/17 Principal diagnosis: RLE PVD with gangrene Interval history: Patient with a history of right foot gangrene who presented with maggots in her wound from long-term. Patient for planned [id number]-pje-[id number] amputation tomorrow. No complete the pain. Dressing changed, patient with right heel and forefoot dry gangrene. Objective - Constitutional Vitals: Vital Signs - 12hr 01/01/17 01/01/17 05:00 07:10 Temperature 98.8 F 98.9 F Pulse Rate [ 90 101 H Left Radial] Pulse Rate [ 90 101 H Right Radial] Respiratory 18 20 Rate Blood Pressure 132/63 175/68 [Left Arm] O2 Sat by Pulse 97 Oximetry General appearance: Present: no acute distress, obese - EENT Eyes: PERRL ENT: hearing intact - Neck Neck: supple - Respiratory Respiratory effort: normal - Breasts Breasts: deferred - Gastrointestinal General gastrointestinal: Present: deferred Rectal Exam: deferred - Genitourinary Female genitourinary: deferred - Psychiatric Psychiatric: cooperative - Labs CBC & Chem 7: 01/01/17 05:06 01/01/17 05:06 Labs: Abnormal lab results 12/31/16 01/01/17 01/01/17 Range/Units 21:57 05:06 05:06 WBC 12.3 H (4.5-11.0) K/mm3 Hgb 9.2 L (10.1-14.3) gm/dl Hct 29.1 L (30.3-42.9) % MCV 76 L (79-97) fl MCH 24 L (28-32) pg RDW 17.0 H (13.2-15.2) % Lymph % (Auto) 11.6 L (13.4-35.0) % Seg Neutrophils % 81.5 H (40.0-70.0) % Seg Neutrophils # 10.1 H (1.8-7.7) K/mm3 BUN 20 H (7-17) mg/dL Glucose 56 L (65-100) mg/dL POC Glucose 127 H (70-105) Hemoglobin A1c (4-6) % Alkaline Phosphatase 189 H (35-129) units/L Albumin 2.6 L (3.9-5) g/dL 01/01/17 Range/Units 05:06 WBC (4.5-11.0) K/mm3 Hgb (10.1-14.3) gm/dl Hct (30.3-42.9) % MCV (79-97) fl MCH (28-32) pg RDW (13.2-15.2) % Lymph % (Auto) (13.4-35.0) % Seg Neutrophils % (40.0-70.0) % Seg Neutrophils # (1.8-7.7) K/mm3 BUN (7-17) mg/dL Glucose (65-100) mg/dL POC Glucose (70-105) Hemoglobin A1c 9.2 H (4-6) % Alkaline Phosphatase (35-129) units/L Albumin (3.9-5) g/dL
--- NOTE | 2017-01-01 13:07 | Admit Criteria Form ---
Admission Criteria Documentation: SKIN AND WOUND CARE Clinical Indications for Inpatient Care (Place 'X' for any and all applicable criteria): Ongoing inpatient care may be indicated for pressure, venous, arterial, or neuropathic ulcers, with ANY ONE of the following (2)(3)(8)(9)(21)(25): [X]I. Need for ANY ONE of the following(26) [ ]a) Pressure ulcer closure procedures [ ]b) Skin grafting [ ]c) Wound debridement [ ]d) Dressing change under general anesthesia [ ]e) Arterial revascularization procedures(19) (Also use Aortofemoral or Aortoiliac Bypass or Femoral Popliteal Bypass Criteria as appropriate) [X]f) Amputation (Also use Foot: Transmetatarsal Amputation or Knee: Amputation Above or Below Knee Criteria as appropriate) [ ]g) Diverting colostomy [ ]h) Other significant surgical treatment [ ]II. Infection requiring inpatient care as indicated by ALL of the following( 27) [ ]a) ANY ONE of the following signs of infection: [ ]i) Poorly approximated incision line. [ ]ii) Excessive drainage [ ]iii) Foul odor [ ]iv) Pus [ ]v) Increased redness [ ]vi) Breakdown in tissue after suture removal [ ]vii) Fever [ ]b) ANY ONE of the following findings: [ ]i) Mental status changes [ ]ii) Dehydration [ ]iii) Bacteremia [ ]iv) Perineal infection [ ]v) Hemodynamic instability [ ]vi) High-risk conditions, such as ANY ONE of the following: [ ]1) Poorly controlled diabetes [ ]2) Cirrhosis [ ]3) Neutropenia [ ]4) Asplenia [ ]5) HIV infection [ ]6) Immunosuppression Extended stay beyond goal length of stay for primary condition may be needed until ALL of the following are present(1)(2)(13)(21)(27): [ ]a) Tissue necrosis absent or treatment plan manageable at lower level of care [ ]b) Fistulas, tunneling, or underlying deep tissue infection absent or treated [ ]c) Purulence and tissue breakdown absent or improved [ ]d) Ulcer surgical repair absent or healing without complications [ ]e) Wound infection absent or manageable at lower level of care [ ]f) Comorbidities absent or manageable at lower level of care The original [facility] content created by Mildred Marvin has been revised. The portions of the content which have been revised are identified through the use of italic text or in bold, and [facility] has neither reviewed nor approved the modified material. All other unmodified content is copyright [facility]. Please see references footnoted in the original [facility] edition 2016 Admission Criteria Met: Yes
[2017-01-01] MEDS: NACL 0.45% 1000 ML 1,000 ML IV SCH (19:01)
[2017-01-01] MEDS ORDERED: NACL 0.45% 1000 ML 1,000 ML IV SCH (20:00)
[2017-01-01] MEDS ORDERED: LEVEMIR SUB-Q SCH (22:00)
[2017-01-01] MEDS: LEVEMIR SUB-Q SCH (22:25)
[2017-01-02 04:13] LABS: Anion Gap 22 mmol/L; Blood Urea Nitrogen 17 mg/dL (7-17); Calcium 8.5 mg/dL (8.4-10.2); Carbon Dioxide 22 mmol/L (22-30); Chloride 103.3 mmol/L (98-107); Glucose 161 mg/dL (65-100); Potassium 4.2 mmol/L (3.6-5.0); Sodium 143 mmol/L (137-145)
[2017-01-02] MEDS: NOVOLOG SUB-Q SCH ×3 (07:57→21:08)
--- NOTE | 2017-01-02 08:23 | Progress Note ---
Assessment and Plan - Patient Problems (1) BRIA (acute kidney injury) Current Visit: Yes Status: Acute Plan to address problem: Acute Kidney Injury superimposed on CKD likely secondary to volume depletion. Renal function has improved. (2) Gangrene of right foot Current Visit: Yes Status: Acute Plan to address problem: Followed by Vascular. (3) IDDM (insulin dependent diabetes mellitus) Current Visit: Yes Status: Chronic (4) Hypertension Current Visit: Yes Status: Chronic Qualifiers: Hypertension type: essential hypertension Qualified Code(s): I10 - Essential (primary) hypertension Plan to address problem: BP is fair. Subjective Date of service: 01/02/17 Principal diagnosis: RLE PVD with gangrene Interval history: Patient is aphasic. Objective - Vital Signs Vital signs: Vital Signs - 12hr 01/01/17 01/02/17 01/02/17 22:30 00:35 06:10 Temperature 99.1 F 99.1 F Pulse Rate 97 H Pulse Rate [ 92 H 98 H Left Radial] Pulse Rate [ 92 H 98 H Right Radial] Respiratory 17 20 Rate Blood Pressure 123/64 Blood Pressure 137/72 148/71 [Left Arm] O2 Sat by Pulse 97 100 Oximetry 01/02/17 07:46 Temperature 98.2 F Pulse Rate Pulse Rate [ 99 H Left Radial] Pulse Rate [ 99 H Right Radial] Respiratory 18 Rate Blood Pressure Blood Pressure 144/81 [Left Arm] O2 Sat by Pulse 97 Oximetry - General Appearance General appearance: well-developed, well-nourished, appears stated age, obese, other (no distress) EENT: ATNC, mucous membranes moist Neck: supple Respiratory: Present: Clear to Ascultation Cardiology: regular, S1S2, no murmurs Gastrointestinal: normoactive bowel sounds, no tenderness, obese Integumentary: no rash Neurologic: aphasia, other (right hemiparesis) Musculoskeletal: other (right foot covered with dressing) - Lab 01/01/17 05:06 01/02/17 03:39 Most recent lab results Calcium 8.5 mg/dL (8.4-10.2) 01/02/17 03:39
--- NOTE | 2017-01-02 08:59 | Progress Note ---
Assessment and Plan Assessment and plan: 66-year-old -Iranian female with multiple medical problems including hypertension insulin-dependent diabetes dementia peripheral arterial disease sent in from [facility] for gangrene of the right foot, maggots were found on her Right LE upon arrival in ED (1) Gangrene of right foot Current Visit: Yes Status: Acute Plan to address problem: planned for below-knee amputation today, 01/02/17. Vascular surgery on board, continue empiric abx ID consult (2) Atherosclerosis of [place] arteries of the extremities with gangrene/Sepsis- RLE cellulitis Current Visit: No Status: Acute Qualifiers: Peripheral atherosclerosis location: lower extremity Laterality: right Qualified Code(s): I70.261 - Atherosclerosis of [place] arteries of extremities with gangrene, right leg Plan to address problem: Patient needs a below-knee amputation continue empiric abx, continue sepsis pathway ID consult (3) Anemia Current Visit: Yes Status: Chronic Qualifiers: Anemia type: A Iron deficiency anemia type: I Vitamin B12 deficiency anemia type: V Folate deficiency anemia type: F Bone marrow failure anemia type: B Hemolytic anemia type: H Other causes of anemia: O Chronic kidney disease stage: C Plan to address problem: Chronic anemia. Iron studies ordered. B12 and folic acid levels ordered (4) IDDM (insulin dependent diabetes mellitus), type 2/uncontrolled A1c is 9 hypogylcemia now resolved, continue Levemir and SSI -Hold oral medications while in hospital (5) Accelerated Hypertension Current Visit: Yes Status: Chronic Qualifiers: Hypertension type: essential hypertension Qualified Code(s): I10 - Essential (primary) hypertension Plan to address problem: BP better controlled now, continue current meds (6) Hyperlipidemia Current Visit: Yes Status: Chronic Qualifiers: Hyperlipidemia type: mixed hyperlipidemia Qualified Code(s): E78.2 - Mixed hyperlipidemia Plan to address problem: Continue atorvastatin 20 mg by mouth daily at bedtime (7) Depression Current Visit: Yes Status: Chronic Qualifiers: Depression Type: unspecified Major depression recurrence: M Active/ Remission status: A Major depression episode severity: M Psychotic features : P Trimester: T Qualified Code(s): F32.9 - Major depressive disorder, single episode, unspecified Plan to address problem: Continues citalopram 20 mg once a day (8) Dementia Current Visit: Yes Status: Chronic Qualifiers: Dementia type: vascular dementia Alzheimer's disease onset: A Dementia behavioral disturbance: D Plan to address problem: Continue Aricept 5 mg once a day and Namenda 10 mg twice a day. (9) Malnutrition of moderate degree Current Visit: Yes Status: Chronic Plan to address problem: Dietary consult, albumin is 2.7, encourage balanced diet rich in healthy fats and proteins (10) acute kidney injury/vasomotor nephropathy Resolving with IV fluids, creatinine improved today gout continue colchicine DVT prophylaxis Current Visit: Yes Status: Acute Plan to address problem: Lovenox 40 mg subcutaneous daily History Interval history: The patient denies chest pain, denies fever and denies chills, admits lacks of sensation in RLE, has not walked in years Hospitalist Physical - Physical exam Narrative exam: General appearance: Present: no acute distress, well-nourished - EENT Eyes: Present: PERRL ENT: hearing intact, clear oral mucosa - Neck Neck: Present: supple, normal ROM - Respiratory Respiratory effort: normal Respiratory: bilateral: CTA - Cardiovascular Heart rate: 80 Rhythm: regular (80) Heart Sounds: Present: S1 & S2. Absent: rub, click - Extremities Extremities: pulses symmetrical, No edema, abnormal (right foot dark and gangrenous up to the ankle) Peripheral Pulses: abnormal (weak) - Abdominal General gastrointestinal: Present: soft, non-tender, non-distended, normal bowel sounds Female genitourinary: Present: normal - Rectal Rectal Exam: deferred - Integumentary Integumentary: Present: clear, warm, dry - Musculoskeletal Musculoskeletal: gait normal, strength equal bilaterally - Psychiatric Psychiatric: appropriate mood/affect, intact judgment & insight - Neurologic Neurologic: CNII-XII intact, moves all extremities - Constitutional Vitals: Temp Pulse Resp BP Pulse Ox 98.2 F 99 H 18 144/81 97 01/02/17 07:46 01/02/17 07:46 01/02/17 07:46 01/02/17 07:46 01/02/17 07:46 General appearance: Present: no acute distress, obese Results - Labs CBC & Chem 7: 01/01/17 05:06 01/02/17 03:39 Labs: Laboratory Last Values WBC 12.3 K/mm3 (4.5-11.0) H 01/01/17 05:06 RBC 3.82 M/mm3 (3.65-5.03) 07/04/17 05:06 Hgb 9.2 gm/dl (10.1-14.3) L 01/01/17 05:06 Hct 29.1 % (30.3-42.9) L 01/01/17 05:06 MCV 76 fl (79-97) L 01/01/17 05:06 MCH 24 pg (28-32) L 01/01/17 05:06 MCHC 32 % (30-34) 01/01/17 05:06 RDW 17.0 % (13.2-15.2) H 01/01/17 05:06 Plt Count 238 K/mm3 (140-440) 01/01/17 05:06 Lymph % (Auto) 11.6 % (13.4-35.0) L 01/01/17 05:06 [place] % (Auto) 5.4 % (0.0-7.3) 01/01/17 05:06 Eos % (Auto) 0.9 % (0.0-4.3) 01/01/17 05:06 Baso % (Auto) 0.6 % (0.0-1.8) 01/01/17 05:06 Lymph # 1.4 K/mm3 (1.2-5.4) 01/01/17 05:06 [place] # 0.7 K/mm3 (0.0-0.8) 01/01/17 05:06 Eos # 0.1 K/mm3 (0.0-0.4) 01/01/17 05:06 Baso # 0.1 K/mm3 (0.0-0.1) 01/01/17 05:06 Seg Neutrophils % 81.5 % (40.0-70.0) H 01/01/17 05:06 Seg Neutrophils # 10.1 K/mm3 (1.8-7.7) H 01/01/17 05:06 PT 14.4 Sec. (12.2-14.9) 12/31/16 13:44 INR 1.13 (0.87-1.13) 12/31/16 13:44 VBG pH 7.415 (7.320-7.420) 12/31/16 13:44 Sodium 143 mmol/L (137-145) 01/02/17 03:39 Potassium 4.2 mmol/L (3.6-5.0) 01/02/17 03:39 Chloride 103.3 mmol/L (98-107) 01/02/17 03:39 Carbon Dioxide 22 mmol/L (22-30) 01/02/17 03:39 Anion Gap 22 mmol/L 01/02/17 03:39 BUN 17 mg/dL (7-17) 01/02/17 03:39 Creatinine 1.0 mg/dL (0.7-1.2) 01/02/17 03:39 Estimated GFR > 60 ml/min 01/02/17 03:39 BUN/Creatinine Ratio 17.00 % 01/02/17 03:39 Glucose 161 mg/dL (65-100) H 01/02/17 03:39 POC Glucose 102 (70-105) 01/01/17 22:03 Hemoglobin A1c 9.2 % (4-6) H 01/01/17 05:06 Lactic Acid 2.50 mmol/L (0.7-2.0) H* 12/31/16 16:57 Calcium 8.5 mg/dL (8.4-10.2) 01/02/17 03:39 Total Bilirubin 0.40 mg/dL (0.1-1.2) 01/01/17 05:06 AST 22 units/L (5-40) 01/01/17 05:06 ALT 25 units/L (7-56) 01/01/17 05:06 Alkaline Phosphatase 189 units/L (35-129) H 01/01/17 05:06 Total Protein 7.9 g/dL (6.3-8.2) 01/01/17 05:06 Albumin 2.6 g/dL (3.9-5) L 01/01/17 05:06 Albumin/Globulin Ratio 0.5 % 01/01/17 05:06
[2017-01-02] MEDS: COLACE PO SCH ×2 (09:17→21:15)
[2017-01-02] MEDS: DIOVAN PO SCH ×3 (09:17→21:15)
[2017-01-02] MEDS: celeXA PO SCH (09:17)
[2017-01-02] MEDS: PEPCID IV SCH ×3 (09:18→21:16)
[2017-01-02] MEDS: LOVENOX SUB-Q SCH (09:20)
[2017-01-02] MEDS: TRADJENTA PO SCH (09:21)
[2017-01-02] MEDS ORDERED: NON-FORMULARY (Memantine Hcl [Namenda] 10 MG) PO SCH (10:00)
[2017-01-02] MEDS ORDERED: NON-FORMULARY (Colchicine [Colchicine] 0.6 MG) PO SCH (10:00)
[2017-01-02] MEDS ORDERED: MULTIVIT WITH CALCIUM IRON MIN PO SCH (10:00)
[2017-01-02] MEDS: FLEXERIL PO SCH (12:09)
[2017-01-02] MEDS: ASPIRIN PO SCH (12:09)
[2017-01-02] MEDS: ARICEPT PO SCH (12:10)
[2017-01-02] MEDS: FEOSOL PO SCH (12:10)
[2017-01-02] MEDS: ROXICODONE PO SCH (13:21)
[2017-01-02] MEDS: COLCRYS PO SCH (13:22)
[2017-01-02] MEDS: PROTONIX PO SCH (13:22)
[2017-01-02] MEDS: THERAGRAN Tab PO SCH (13:22)
[2017-01-02] MEDS: NAMENDA XR PO SCH (13:22)
[2017-01-02] MEDS ORDERED: DILAUDID ONE ×2 (14:15→15:18)
[2017-01-02] MEDS ORDERED: XYLOCAINE CARDIAC IV ONE (14:15)
[2017-01-02] MEDS ORDERED: DIPRIVAN 10 MG/ML IV ONE (14:15)
[2017-01-02] MEDS ORDERED: NACL 0.9% IR ONE (15:00)
[2017-01-02] MEDS ORDERED: ANCEF/STERILE WATER 2 GM/20 ML IV NR (15:11)
[2017-01-02] MEDS ORDERED: NACL 0.9% 100 ML ONE (16:00)
[2017-01-02] MEDS ORDERED: NEO SYNEPHRINE ONE (16:00)
[2017-01-02] MEDS ORDERED: ZOFRAN ONE (16:06)
--- NOTE | 2017-01-02 16:28 | Operative Report ---
Operative Report Operative Report: Date of procedure: 01/02/2017 Pre-operative diagnosis: Severe infection right foot in an ambulatory patient with knee contracture. Post-operative diagnosis: Same Procedure name(s): Right above-knee amputation Surgeon: Isaac Sol MD, RPVI Share Holder: ANIL Hastings Anesthesia: General Findings Well vascularized flaps. Specimens: Leg EBL: 150 mL IV fluids: 450 mL Disposition: The recovery Indication: Right foot infection with knee contracture. Procedure The patient was brought to the operating room laid on the operating table in supine position. After general tracheal anesthesia was achieved the right leg was prepped and draped in usual sterile fashion. The flaps were drawn on the leg and [place] fashion 4 fingerbreadths above the knee. The incision along the flap lines was made using #10 blade. Subcutaneous tissues and muscles were divided with Bovie electrocautery. The anterior flap was fashioned by dividing the muscle with Bovie electrocautery. The superficial femoral artery was dissected free and tied off using 0 silk ties and 3-0 proline suture ligature proximally. It was divided. Superficial femoral veins were dissected and divided between 3-0 silk ties. The femur was skeletonized using periosteal elevator. It was divided with oscillating saw. The posterior flap was fashioned using amputation knife. All the bleeding profunda branches were controlled with hemostats and tied over 3-0 silk ties. The stump was washed with warm saline. The muscle was closed over femur using interrupted figure-of- eight 2-0 Vicryl stitches. The subcutaneous fascia was approximated using frequent interrupted 0 Vicryl stitches. The skin was closed with zabrina. Dressings were applied. Patient tolerated procedure well. At the end of the case all instrument, sponge, and needle counts were correct.
[2017-01-02] MEDS ORDERED: D50W (25GM) IV ONE ×2 (16:53→19:00)
[2017-01-02] MEDS ORDERED: DILAUDID IV PRN (16:55)
[2017-01-02] MEDS ORDERED: ZOFRAN IV PRN (16:55)
--- NOTE | 2017-01-02 17:35 | Post Anesthesia Evaluation ---
- Post Anesthesia Evaluation Patient Participated: Yes Airway Patent: Yes Stable Respiratory Function: Yes Nausea/Vomiting: No Temp > 96.8F: Yes Pain Manageable: Yes Adequeate Hydration: Yes Anesthesia Complications: No
[2017-01-02] MEDS: LEVEMIR SUB-Q SCH (21:08)
[2017-01-02] MEDS ORDERED: MELATONIN PO SCH (22:00)
[2017-01-02] MEDS ORDERED: PYRIDOXINE PO SCH (22:00)
[2017-01-03] MEDS: ANCEF/NS 1 GM/50 ML 1 GM/50 ML BAG IV SCH ×3 (00:39→20:00)
[2017-01-03] MEDS: UNASYN/NS 1.5 GM/50 ML 1.5 GM/50 ML BAG IV SCH ×4 (01:08→18:30)
[2017-01-03] MEDS: PERCOCET 5/325 PO PRN ×2 (03:25→17:03)
[2017-01-03 05:03] LABS: Anion Gap 19 mmol/L; BUN/Creatinine Ratio 12.72; Blood Urea Nitrogen 14 mg/dL (7-17); Calcium 8.1 mg/dL (8.4-10.2); Carbon Dioxide 22 mmol/L (22-30); Chloride 101.8 mmol/L (98-107); Glucose 75 mg/dL (65-100); Potassium 3.8 mmol/L (3.6-5.0); Sodium 139 mmol/L (137-145)
[2017-01-03] MEDS: NOVOLOG SUB-Q SCH ×4 (07:55→22:35)
--- NOTE | 2017-01-03 08:59 | Progress Note ---
Assessment and Plan Assessment and plan: 66-year-old -[place]ym[place] female with multiple medical problems including hypertension insulin-dependent diabetes dementia peripheral arterial disease sent in from [facility] for gangrene of the right foot, maggots were found on her Right LE upon arrival in ED (1) Gangrene of right foot Current Visit: Yes Status: Acute Plan to address problem: florentino HENDERSON, 01/02/17. Vascular surgery on board, continue empiric abx ID consult pending (2) Atherosclerosis of [place] arteries of the extremities with gangrene/Sepsis- RLE cellulitis Current Visit: No Status: Acute Qualifiers: Peripheral atherosclerosis location: lower extremity Laterality: right Qualified Code(s): I70.261 - Atherosclerosis of [place] arteries of extremities with gangrene, right leg Plan to address problem: sp SANTIAGO, 01/02/17. Vascular surgery on board, continue empiric abx, continue sepsis pathway ID consult (3) Anemia Current Visit: Yes Status: Chronic Qualifiers: Anemia type: A Iron deficiency anemia type: I Vitamin B12 deficiency anemia type: V Folate deficiency anemia type: F Bone marrow failure anemia type: B Hemolytic anemia type: H Other causes of anemia: O Chronic kidney disease stage: C Plan to address problem: Chronic anemia. Iron studies ordered. B12 and folic acid levels ordered (4) IDDM (insulin dependent diabetes mellitus), type 2/uncontrolled A1c is 9 hypogylcemia now resolved, continue Levemir and SSI -Hold oral medications while in hospital (5) Accelerated Hypertension Current Visit: Yes Status: Chronic Qualifiers: Hypertension type: essential hypertension Qualified Code(s): I10 - Essential (primary) hypertension Plan to address problem: BP better controlled now, continue current meds (6) Hyperlipidemia Current Visit: Yes Status: Chronic Qualifiers: Hyperlipidemia type: mixed hyperlipidemia Qualified Code(s): E78.2 - Mixed hyperlipidemia Plan to address problem: Continue atorvastatin 20 mg by mouth daily at bedtime (7) Depression Current Visit: Yes Status: Chronic Qualifiers: Depression Type: unspecified Major depression recurrence: M Active/ Remission status: A Major depression episode severity: M Psychotic features : P Trimester: T Qualified Code(s): F32.9 - Major depressive disorder, single episode, unspecified Plan to address problem: Continues citalopram 20 mg once a day (8) Dementia Current Visit: Yes Status: Chronic Qualifiers: Dementia type: vascular dementia Alzheimer's disease onset: A Dementia behavioral disturbance: D Plan to address problem: Continue Aricept 5 mg once a day and Namenda 10 mg twice a day. (9) Malnutrition of moderate degree Current Visit: Yes Status: Chronic Plan to address problem: Dietary consult, albumin is 2.7, encourage balanced diet rich in healthy fats and proteins (10) acute kidney injury/vasomotor nephropathy Resolved with IV fluids, gout continue colchicine DVT prophylaxis Current Visit: Yes Status: Acute Plan to address problem: Lovenox 40 mg subcutaneous daily Dispo; to SNF, her family does not want to her return to her previous NH being that she had maggots on her gangrenous RLE and it was not noticed there. CM to arrange placement. Inpatient PT History Interval history: The patient denies chest pain, denies fever and denies chills, poor sensation in RLE Hospitalist Physical - Physical exam Narrative exam: General appearance: Present: no acute distress, well-nourished - EENT Eyes: Present: PERRL ENT: hearing intact, clear oral mucosa - Neck Neck: Present: supple, normal ROM - Respiratory Respiratory effort: normal Respiratory: bilateral: CTA - Cardiovascular Heart rate: 80 Rhythm: regular (80) Heart Sounds: Present: S1 & S2. Absent: rub, click - Extremities Extremities: Sp R Aka, post op changes seen - Abdominal General gastrointestinal: Present: soft, non-tender, non-distended, normal bowel sounds Female genitourinary: Present: normal - Rectal Rectal Exam: deferred - Integumentary Integumentary: Present: clear, warm, dry - Musculoskeletal Musculoskeletal: gait normal, strength equal bilaterally - Psychiatric Psychiatric: appropriate mood/affect, intact judgment & insight - Neurologic Neurologic: CNII-XII intact, moves all extremities - Constitutional Vitals: Temp Pulse Resp BP Pulse Ox 98.7 F 84 20 155/75 100 01/03/17 04:30 01/03/17 04:30 01/03/17 04:30 01/03/17 04:30 01/02/17 19:15 General appearance: Present: no acute distress, obese Results - Labs CBC & Chem 7: 01/01/17 05:06 01/03/17 03:27 Labs: Laboratory Last Values WBC 12.3 K/mm3 (4.5-11.0) H 01/01/17 05:06 RBC 3.82 M/mm3 (3.65-5.03) 01/01/17 05:06 Hgb 9.2 gm/dl (10.1-14.3) L 01/01/17 05:06 Hct 29.1 % (30.3-42.9) L 01/01/17 05:06 MCV 76 fl (79-97) L 01/01/17 05:06 MCH 24 pg (28-32) L 01/01/17 05:06 MCHC 32 % (30-34) 01/01/17 05:06 RDW 17.0 % (13.2-15.2) H 01/01/17 05:06 Plt Count 238 K/mm3 (140-440) 01/01/17 05:06 Lymph % (Auto) 11.6 % (13.4-35.0) L 01/01/17 05:06 [place] % (Auto) 5.4 % (0.0-7.3) 01/01/17 05:06 Eos % (Auto) 0.9 % (0.0-4.3) 01/01/17 05:06 Baso % (Auto) 0.6 % (0.0-1.8) 01/01/17 05:06 Lymph # 1.4 K/mm3 (1.2-5.4) 01/01/17 05:06 [place] # 0.7 K/mm3 (0.0-0.8) 01/01/17 05:06 Eos # 0.1 K/mm3 (0.0-0.4) 01/01/17 05:06 Baso # 0.1 K/mm3 (0.0-0.1) 01/01/17 05:06 Seg Neutrophils % 81.5 % (40.0-70.0) H 01/01/17 05:06 Seg Neutrophils # 10.1 K/mm3 (1.8-7.7) H 01/01/17 05:06 PT 14.4 Sec. (12.2-14.9) 12/31/16 13:44 INR 1.13 (0.87-1.13) 12/31/16 13:44 VBG pH 7.415 (7.320-7.420) 12/31/16 13:44 Sodium 139 mmol/L (137-145) 01/03/17 03:27 Potassium 3.8 mmol/L (3.6-5.0) 01/03/17 03:27 Chloride 101.8 mmol/L (98-107) 01/03/17 03:27 Carbon Dioxide 22 mmol/L (22-30) 01/03/17 03:27 Anion Gap 19 mmol/L 01/03/17 03:27 BUN 14 mg/dL (7-17) 01/03/17 03:27 Creatinine 1.1 mg/dL (0.7-1.2) 01/03/17 03:27 Estimated GFR > 60 ml/min 01/03/17 03:27 BUN/Creatinine Ratio 12.72 % 01/03/17 03:27 Glucose 75 mg/dL (65-100) 01/03/17 03:27 POC Glucose 121 (70-105) H 01/02/17 21:05 Hemoglobin A1c 9.2 % (4-6) H 01/01/17 05:06 Lactic Acid 2.50 mmol/L (0.7-2.0) H* 12/31/16 16:57 Calcium 8.1 mg/dL (8.4-10.2) L 01/03/17 03:27 Total Bilirubin 0.40 mg/dL (0.1-1.2) 01/01/17 05:06 AST 22 units/L (5-40) 01/01/17 05:06 ALT 25 units/L (7-56) 01/01/17 05:06 Alkaline Phosphatase 189 units/L (35-129) H 01/01/17 05:06 Total Protein 7.9 g/dL (6.3-8.2) 01/01/17 05:06 Albumin 2.6 g/dL (3.9-5) L 01/01/17 05:06 Albumin/Globulin Ratio 0.5 % 01/01/17 05:06
--- NOTE | 2017-01-03 09:37 | Progress Note ---
Assessment and Plan - Patient Problems (1) BRIA (acute kidney injury) Current Visit: Yes Status: Acute Plan to address problem: Acute Kidney Injury superimposed on CKD likely secondary to volume depletion. Renal function has improved. (2) Gangrene of right foot Current Visit: Yes Status: Acute Plan to address problem: S/p right AKA. (3) IDDM (insulin dependent diabetes mellitus) Current Visit: Yes Status: Chronic (4) Hypertension Current Visit: Yes Status: Chronic Qualifiers: Hypertension type: essential hypertension Qualified Code(s): I10 - Essential (primary) hypertension Plan to address problem: BP is fair. Subjective Date of service: 01/03/17 Principal diagnosis: RLE PVD with gangrene Interval history: Patient is aphasic. Objective - Vital Signs Vital signs: Vital Signs - 12hr 01/02/17 01/03/17 01/03/17 22:00 00:42 04:30 Temperature 98.0 F 98.7 F Pulse Rate [ 84 84 Left Radial] Pulse Rate [ 84 84 Right Radial] Respiratory 18 20 20 Rate Blood Pressure 144/75 155/75 [Left Arm] - General Appearance General appearance: well-developed, well-nourished, appears stated age, other ( no distress) EENT: ATNC Neck: supple Respiratory: Present: Clear to Ascultation Cardiology: regular, S1S2, no murmurs Gastrointestinal: normoactive bowel sounds, no tenderness, no distended, obese Integumentary: no rash Neurologic: aphasic Musculoskeletal: other (right AKA) - Lab 01/01/17 05:06 01/03/17 03:27 Most recent lab results Calcium 8.1 mg/dL (8.4-10.2) L 01/03/17 03:27
[2017-01-03] MEDS: LOVENOX SUB-Q SCH (10:03)
[2017-01-03] MEDS: FEOSOL PO SCH (10:04)
[2017-01-03] MEDS: ASPIRIN PO SCH (10:04)
[2017-01-03] MEDS: NAMENDA XR PO SCH (10:05)
[2017-01-03] MEDS: COLCRYS PO SCH (10:05)
[2017-01-03] MEDS: TRADJENTA PO SCH (10:07)
[2017-01-03] MEDS: DIOVAN PO SCH ×2 (10:08→22:28)
[2017-01-03] MEDS: celeXA PO SCH (10:09)
[2017-01-03] MEDS: ARICEPT PO SCH (10:09)
[2017-01-03] MEDS: PEPCID PO SCH ×2 (10:10→22:29)
[2017-01-03] MEDS: PROTONIX PO SCH (10:10)
[2017-01-03] MEDS: COLACE PO SCH ×2 (10:11→22:29)
[2017-01-03] MEDS: FLEXERIL PO SCH (10:11)
[2017-01-03] MEDS: THERAGRAN Tab PO SCH (10:12)
[2017-01-03] MEDS: ROXICODONE PO SCH (10:13)
--- NOTE | 2017-01-03 15:06 | Progress Note ---
Assessment and Plan Pt appears to be doing well post op. Check wounds next 24-48 hrs. Pt is scheduled for a CBC and BMP in am. - Patient Problems (1) Atherosclerosis of [place] arteries of the extremities with gangrene Current Visit: No Status: Acute Qualifiers: Peripheral atherosclerosis location: lower extremity Laterality: right Qualified Code(s): I70.261 - Atherosclerosis of [place] arteries of extremities with gangrene, right leg Subjective Date of service: 01/03/17 Principal diagnosis: RLE PVD with gangrene Interval history: Pt awake denies post-op pain. Objective - Constitutional Vitals: Vital Signs - 12hr 01/03/17 04:30 Temperature 98.7 F Pulse Rate [ 84 Left Radial] Pulse Rate [ 84 Right Radial] Respiratory 20 Rate Blood Pressure 155/75 [Left Arm] General appearance: Present: no acute distress - EENT Eyes: EOM intact ENT: hearing intact - Neck Neck: supple - Respiratory Respiratory effort: other (shallow breathing) Extremities: abnormal (bandages to the right AKA, CDI) - Psychiatric Psychiatric: cooperative - Labs CBC & Chem 7: 01/01/17 05:06 01/03/17 03:27 Labs: Abnormal lab results 01/02/17 01/02/17 01/02/17 Range/Units 07:36 11:32 16:50 POC Glucose 167 H 119 H 65 L (70-105) Calcium (8.4-10.2) mg/dL 01/02/17 01/03/17 Range/Units 21:05 03:27 POC Glucose 121 H (70-105) Calcium 8.1 L (8.4-10.2) mg/dL
[2017-01-03] MEDS: LEVEMIR SUB-Q SCH (22:30)
[2017-01-04] MEDS: UNASYN/NS 1.5 GM/50 ML 1.5 GM/50 ML BAG IV SCH ×2 (01:53→05:41)
[2017-01-04] MEDS: PERCOCET 5/325 PO PRN (01:54)
--- NOTE | 2017-01-04 05:17 | Consultation ---
History of Present Illness - Reason for Consult Consult date: 01/04/17 Gangrene/Cellulitis Right Foot Requesting physician: MARCIAL TOSCANO - History of Present Illness Ms. Smith is a 66-year-old woman with peripheral vascular disease, diabetes mellitus and dementia admitted from the senior living with gangrenous changes of her right foot. Plain film xray on admission showed right lower extremity swelling with foci of air concerning for a gas-forming process. She underwent a right [id number] amputation. Blood culture taken at the time remains negative. She remains afebrile and hemodynamically stable on Unasyn. She denies any systemic signs of infection. ID consultation is requested for further treatment recommendations. Past History Past Medical History: diabetes, hypertension, hyperlipidemia, PVD, stroke, other (dementia) Past Surgical History: Other (Right lower Hair angiography with atherectomy and angioplasty to the popliteal & the anterior tibial arteries) Social history: . denies: smoking, alcohol abuse Family history: diabetes Medications and Allergies Allergies Allergy/AdvReac Type Severity Reaction Status Date / Time No Known Allergies Allergy Unverified 08/04/15 08:20 Home Medications Medication Instructions Recorded Confirmed Last Taken Type Aspirin [Aspirin TAB] 325 mg PO QDAY 08/04/15 12/31/16 08/03/15 History Atorvastatin Calcium [Lipitor] 20 mg PO QHS 08/04/15 12/31/16 08/03/15 History Citalopram [celeXA] 20 mg PO DAILY 08/04/15 12/31/16 08/03/15 History Colchicine 0.6 mg PO DAILY 08/04/15 12/31/16 08/03/15 History Docusate Sodium [Colace CAP] 100 mg PO BID 08/04/15 12/31/16 Unknown History Donepezil [Aricept] 10 mg PO QDAY 08/04/15 12/31/16 08/03/15 History Ferrous Sulfate [Feosol 325 MG tab] 325 mg PO QDAY 08/04/15 12/31/16 08/03/15 History Glimepiride [Amaryl] 2 mg PO BID 08/04/15 12/31/16 08/03/15 History Insulin Detemir [Levemir VIAL] 35 unit SQ QHS 08/04/15 12/31/16 Unknown History Linagliptin [Tradjenta] 5 mg PO QDAY 08/04/15 12/31/16 08/03/15 History Losartan [Cozaar] 100 mg PO QDAY 08/04/15 12/31/16 08/03/15 History Memantine HCl [Namenda] 10 mg PO BID 08/04/15 12/31/16 08/03/15 History Multivit with Calcium,Iron,Min 1 tab PO DAILY 08/04/15 12/31/16 08/03/15 History [Multiple Vitamins For Women] Pantoprazole [Protonix TAB] 40 mg PO QDAY 08/04/15 12/31/16 08/03/15 History oxyCODONE [Roxicodone TAB] 10 mg PO QDAY 08/04/15 12/31/16 08/03/15 History Cyclobenzaprine [Flexeril] 10 mg PO QDAY 12/25/16 12/31/16 Unknown History Insulin Regular, Human [HumuLIN R] 0 unit SQ ACHS 12/25/16 12/31/16 Unknown History Melatonin/Pyridoxine [Melatonin 3 3 mg PO QHS 12/25/16 12/31/16 Unknown History mg Tablet] Promethazine HCl [Promethazine INJ] 25 mg IM Q6H PRN 12/25/16 12/31/16 Unknown History Active Meds: Active Medications Acetaminophen (Tylenol) 650 mg PO Q4H PRN PRN Reason: Pain MILD(1-3)/Fever >100.5/[place] Aspirin (Aspirin) 325 mg PO QDAY [facility] Last Admin: 01/03/17 10:04 Dose: 325 mg Atorvastatin Calcium (Lipitor) 20 mg PO QHS [facility] Last Admin: 01/03/17 22:28 Dose: 20 mg Bisacodyl (Dulcolax) 10 mg MD QDAY PRN PRN Reason: Constipation unrelieved by MOM Citalopram Hydrobromide (Celexa) 20 mg PO DAILY [facility] Last Admin: 01/03/17 10:09 Dose: 20 mg Colchicine (Colcrys) 0.6 mg PO QDAY [facility] Last Admin: 01/03/17 10:05 Dose: 0.6 mg Cyclobenzaprine HCl (Flexeril) 10 mg PO QDAY [facility] Last Admin: 01/03/17 10:11 Dose: 10 mg Docusate Sodium (Colace) 100 mg PO BID [facility] Last Admin: 01/03/17 22:29 Dose: 100 mg Donepezil HCl (Aricept) 10 mg PO QDAY [facility] Last Admin: 01/03/17 10:09 Dose: 10 mg Enoxaparin Sodium (Lovenox) 40 mg SUB-Q QDAY [facility] Last Admin: 01/03/17 10:03 Dose: 40 mg Famotidine (Pepcid) 20 mg PO BID [facility] Last Admin: 01/03/17 22:29 Dose: 20 mg Ferrous Sulfate (Feosol) 325 mg PO QDAY [facility] Last Admin: 01/03/17 10:04 Dose: 325 mg Hydromorphone HCl (Dilaudid) 1 mg IV Q3H PRN PRN Reason: Pain , Severe (7-10) Last Admin: 01/01/17 22:21 Dose: 1 mg Hydromorphone HCl (Dilaudid) 0.5 mg IV Q10MIN PRN PRN Reason: Pain , Severe (7-10) Stop: 01/05/17 16:56 Sodium Chloride (Nacl 0.45% 1000 Ml) 1,000 mls @ 40 mls/hr IV DIRECT [facility] Ampicillin Sodium/Sulbactam Sodium (Unasyn/Ns 1.5 Gm/50 Ml) 1.5 gm in 50 mls @ 100 mls/hr IV Q6HR [facility] PRN Reason: Protocol Last Admin: 01/04/17 01:53 Dose: 100 mls/hr Insulin Aspart (Novolog) 0 units SUB-Q ACHS [facility] PRN Reason: Protocol Last Admin: 01/03/17 22:35 Dose: Not Given Insulin Detemir (Levemir) 45 units SUB-Q QHS [facility] Last Admin: 01/03/17 22:30 Dose: 45 units Linagliptin (Tradjenta) 5 mg PO QDAY [facility] Last Admin: 01/03/17 10:07 Dose: 5 mg Magnesium Hydroxide (Milk Of Magnesia) 30 ml PO Q4H PRN PRN Reason: Constipation Memantine (Namenda Xr) 28 mg PO DAILY [facility] Last Admin: 01/03/17 10:05 Dose: 28 mg Miscellaneous Medication (Melatonin/Pyridoxine [Melatonin 3 Mg Tablet]) 3 mg PO QHS [facility] Multivitamins (Theragran Tab) 1 each PO DAILY [facility] Last Admin: 01/03/17 10:12 Dose: 1 each Ondansetron HCl (Zofran) 4 mg IV Q8H PRN PRN Reason: N/V unrelieved by Reglan Oxycodone HCl (Roxicodone) 10 mg PO QDAY [facility] Last Admin: 01/03/17 10:13 Dose: 10 mg Oxycodone/Acetaminophen (Percocet 5/325) 1 tab PO Q6H PRN PRN Reason: Pain, Moderate (4-6) Last Admin: 01/04/17 01:54 Dose: 1 tab Pantoprazole Sodium (Protonix) 40 mg PO QDAY [facility] Last Admin: 01/03/17 10:10 Dose: 40 mg Valsartan (Diovan) 160 mg PO BID [facility] Last Admin: 01/03/17 22:28 Dose: 160 mg Zolpidem Tartrate (Ambien) 5 mg PO QHS PRN PRN Reason: Insomnia Review of Systems All systems: negative (patient is norverbal but nods head in agreement or not) Constitutional: no fever, no chills, no sweats, no lethargy, no poor appetite Cardiovascular: no rapid/irregular heart beat, no shortness of breath Respiratory: no cough Gastrointestinal: no abdominal pain, no nausea, no vomiting, no diarrhea Musculoskeletal: shooting leg pain Integumentary: no rash, no pruritis Physical Examination - Constitutional Vitals: Vital Signs Temp Pulse Resp BP Pulse Ox 99.0 F 88 20 142/70 98 01/04/17 01:18 01/04/17 01:18 01/04/17 01:18 01/04/17 01:18 01/04/17 01:18 Temperature -Last 24 Hours Temperature 99.0 F Temperature 98.4 F General appearance: Present: no acute distress, well-nourished, other (eating breakfast; spouse kneeling at bedside praying) - EENT Eyes: Absent: conjunctival injection - Neck Neck: Absent: supple - Respiratory Respiratory: bilateral: CTA, negative: rales, rhonchi - Cardiovascular Rhythm: regular Heart Sounds: Present: S1 & S2 - Extremities Extremities: No edema Extremity abnormal: other (high AKA) - Abdominal General gastrointestinal: Present: soft, non-tender, non-distended, normal bowel sounds Female genitourinary: Present: other (Stanley with yellow urine) - Integumentary Integumentary: Present: clear. Absent: rash - Neurologic Neurologic: focal deficits (non-verbal) Results - Labs CBC & Chem 7: 01/04/17 05:05 01/04/17 05:05 Labs: Abnormal lab results 01/02/17 Range/Units 16:50 POC Glucose 65 L (70-105) Microbiology 12/31/16 Unknown Peripheral/Venous Blood Culture - Preliminary NO GROWTH AFTER 72 HOURS - Imaging and Cardiology Chest x-ray: report reviewed ((12/31/16) - no acute cardiolpulmonary findings) Assessment and Plan - Patient Problems (1) Gangrene of right foot Current Visit: Yes Status: Acute Plan to address problem: 1. Patient is now POD #2 right [id number] amputation with reported well- vascularized flaps. 2. Right foot infection/ gangrene is surgically resolved. Patient has no systemic evidence of infection. 3. Will discontinue antibiotics. Continue to monitor clinically and follow- up cultures.
[2017-01-04 05:56] LABS: Basophils % (Auto) 0.6 % (0.0-1.8); Eosinophils % (Auto) 0.9 % (0.0-4.3); Hematocrit 28.1 % (30.3-42.9); Hemoglobin 8.8 gm/dl (10.1-14.3); Mean Corpuscular HGB Conc 31 % (30-34); Mean Corpuscular Hemoglobin 24 pg (28-32); Mean Corpuscular Volume 78 fl (79-97); Platelet Count 240 K/mm3 (140-440); Red Blood Count 3.62 M/mm3 (3.65-5.03); White Blood Count 11.6 K/mm3 (4.5-11.0)
[2017-01-04 06:07] LABS: Alanine Aminotransferase 12 units/L (7-56); Albumin 2.1 g/dL (3.9-5); Albumin/Globulin Ratio 0.4 %; Alkaline Phosphatase 160 units/L (35-129); Anion Gap 18 mmol/L; Blood Urea Nitrogen 11 mg/dL (7-17); Calcium 8.6 mg/dL (8.4-10.2); Carbon Dioxide 23 mmol/L (22-30); Chloride 98.9 mmol/L (98-107); Glucose 223 mg/dL (65-100); Sodium 136 mmol/L (137-145); Total Protein 7.4 g/dL (6.3-8.2)
--- NOTE | 2017-01-04 07:46 | Progress Note ---
Assessment and Plan Assessment and plan: 66-year-old -[place] female with multiple medical problems including hypertension insulin-dependent diabetes dementia peripheral arterial disease sent in from [facility] for gangrene of the right foot, maggots were found on her Right LE upon arrival in ED (1) Gangrene of right LE Current Visit: Yes Status: Acute Plan to address problem: sp SANTIAGO, 01/02/17. Vascular surgery on board, continue empiric abx ID consult pending, PT consult (2) Atherosclerosis of [place] arteries of the extremities with gangrene/Sepsis- RLE cellulitis Current Visit: No Status: Acute Qualifiers: Peripheral atherosclerosis location: lower extremity Laterality: right Qualified Code(s): I70.261 - Atherosclerosis of [place] arteries of extremities with gangrene, right leg Plan to address problem: sp SANTIAGO, 01/02/17. Vascular surgery on board, continue empiric abx, continue sepsis pathway ID consult (3) Anemia Current Visit: Yes Status: Chronic Qualifiers: Anemia type: A Iron deficiency anemia type: I Vitamin B12 deficiency anemia type: V Folate deficiency anemia type: F Bone marrow failure anemia type: B Hemolytic anemia type: H Other causes of anemia: O Chronic kidney disease stage: C Plan to address problem: Chronic anemia. Iron studies ordered. B12 and folic acid levels ordered (4) IDDM (insulin dependent diabetes mellitus), type 2/uncontrolled A1c is 9 hypogylcemia now resolved, continue Levemir and SSI -Hold oral medications while in hospital (5) Accelerated Hypertension Current Visit: Yes Status: Chronic Qualifiers: Hypertension type: essential hypertension Qualified Code(s): I10 - Essential (primary) hypertension Plan to address problem: BP better controlled now, continue current meds (6) Hyperlipidemia Current Visit: Yes Status: Chronic Qualifiers: Hyperlipidemia type: mixed hyperlipidemia Qualified Code(s): E78.2 - Mixed hyperlipidemia Plan to address problem: Continue atorvastatin 20 mg by mouth daily at bedtime (7) Depression Current Visit: Yes Status: Chronic Qualifiers: Depression Type: unspecified Major depression recurrence: M Active/ Remission status: A Major depression episode severity: M Psychotic features : P Trimester: T Qualified Code(s): F32.9 - Major depressive disorder, single episode, unspecified Plan to address problem: Continues citalopram 20 mg once a day (8) Dementia Current Visit: Yes Status: Chronic Qualifiers: Dementia type: vascular dementia Alzheimer's disease onset: A Dementia behavioral disturbance: D Plan to address problem: Continue Aricept 5 mg once a day and Namenda 10 mg twice a day. (9) Malnutrition of moderate degree Current Visit: Yes Status: Chronic Plan to address problem: Dietary consult, albumin is 2.7, encourage balanced diet rich in healthy fats and proteins (10) acute kidney injury/vasomotor nephropathy Resolved with IV fluids, Complete Immobility due to Frailty PT consult, will require SNF placement, CM on the case gout continue colchicine DVT prophylaxis Current Visit: Yes Status: Acute Plan to address problem: Lovenox 40 mg subcutaneous daily Dispo; to SNF, her family does not want to her return to her previous NH being that she had maggots on her gangrenous RLE and it was not noticed there. CM to arrange placement. Inpatient PT History Interval history: The patient denies chest pain, denies fever and denies chills, poor sensation in RLE Hospitalist Physical - Physical exam Narrative exam: General appearance: Present: no acute distress, well-nourished - EENT Eyes: Present: PERRL ENT: hearing intact, clear oral mucosa - Neck Neck: Present: supple, normal ROM - Respiratory Respiratory effort: normal Respiratory: bilateral: CTA - Cardiovascular Heart rate: 80 Rhythm: regular (80) Heart Sounds: Present: S1 & S2. Absent: rub, click - Extremities Extremities: Sp R Aka, post op changes seen - Abdominal General gastrointestinal: Present: soft, non-tender, non-distended, normal bowel sounds Female genitourinary: Present: normal - Rectal Rectal Exam: deferred - Integumentary Integumentary: Present: clear, warm, dry - Musculoskeletal Musculoskeletal: gait normal, strength equal bilaterally - Psychiatric Psychiatric: appropriate mood/affect, intact judgment & insight - Neurologic Neurologic: CNII-XII intact, moves all extremities - Constitutional Vitals: Temp Pulse Resp BP Pulse Ox 99.0 F 88 20 142/70 98 01/04/17 01:18 01/04/17 01:18 01/04/17 01:18 01/04/17 01:18 01/04/17 01:18 General appearance: Present: no acute distress Results - Labs CBC & Chem 7: 01/04/17 05:05 01/04/17 05:05 Labs: Laboratory Last Values WBC 11.6 K/mm3 (4.5-11.0) H 01/04/17 05:05 RBC 3.62 M/mm3 (3.65-5.03) L 01/04/17 05:05 Hgb 8.8 gm/dl (10.1-14.3) L 01/04/17 05:05 Hct 28.1 % (30.3-42.9) L 01/04/17 05:05 MCV 78 fl (79-97) L 01/04/17 05:05 MCH 24 pg (28-32) L 01/04/17 05:05 MCHC 31 % (30-34) 01/04/17 05:05 RDW 17.0 % (13.2-15.2) H 01/04/17 05:05 Plt Count 240 K/mm3 (140-440) 01/04/17 05:05 Lymph % (Auto) 12.3 % (13.4-35.0) L 01/04/17 05:05 [place] % (Auto) 5.0 % (0.0-7.3) 01/04/17 05:05 Eos % (Auto) 0.9 % (0.0-4.3) 01/04/17 05:05 Baso % (Auto) 0.6 % (0.0-1.8) 01/04/17 05:05 Lymph # 1.4 K/mm3 (1.2-5.4) 01/04/17 05:05 [place] # 0.6 K/mm3 (0.0-0.8) 01/04/17 05:05 Eos # 0.1 K/mm3 (0.0-0.4) 01/04/17 05:05 Baso # 0.1 K/mm3 (0.0-0.1) 01/04/17 05:05 Seg Neutrophils % 81.2 % (40.0-70.0) H 01/04/17 05:05 Seg Neutrophils # 9.4 K/mm3 (1.8-7.7) H 01/04/17 05:05 PT 14.4 Sec. (12.2-14.9) 12/31/16 13:44 INR 1.13 (0.87-1.13) 12/31/16 13:44 VBG pH 7.415 (7.320-7.420) 12/31/16 13:44 Sodium 136 mmol/L (137-145) L 01/04/17 05:05 Potassium 4.0 mmol/L (3.6-5.0) 01/04/17 05:05 Chloride 98.9 mmol/L (98-107) 01/04/17 05:05 Carbon Dioxide 23 mmol/L (22-30) 01/04/17 05:05 Anion Gap 18 mmol/L 01/04/17 05:05 BUN 11 mg/dL (7-17) 01/04/17 05:05 Creatinine 1.0 mg/dL (0.7-1.2) 01/04/17 05:05 Estimated GFR > 60 ml/min 01/04/17 05:05 BUN/Creatinine Ratio 11.00 % 01/04/17 05:05 Glucose 223 mg/dL (65-100) H 01/04/17 05:05 POC Glucose 121 (70-105) H 01/02/17 21:05 Hemoglobin A1c 9.2 % (4-6) H 01/01/17 05:06 Lactic Acid 2.50 mmol/L (0.7-2.0) H* 12/31/16 16:57 Calcium 8.6 mg/dL (8.4-10.2) 01/04/17 05:05 Total Bilirubin 0.40 mg/dL (0.1-1.2) 01/04/17 05:05 AST 19 units/L (5-40) 01/04/17 05:05 ALT 12 units/L (7-56) 01/04/17 05:05 Alkaline Phosphatase 160 units/L (35-129) H 01/04/17 05:05 Total Protein 7.4 g/dL (6.3-8.2) 01/04/17 05:05 Albumin 2.1 g/dL (3.9-5) L 01/04/17 05:05 Albumin/Globulin Ratio 0.4 % 01/04/17 05:05
--- NOTE | 2017-01-04 09:38 | Progress Note ---
Assessment and Plan - Patient Problems (1) BRIA (acute kidney injury) Current Visit: Yes Status: Acute Plan to address problem: Acute Kidney Injury superimposed on CKD likely secondary to volume depletion. Renal function has improved. (2) Gangrene of right foot Current Visit: Yes Status: Acute Plan to address problem: S/p right AKA. (3) IDDM (insulin dependent diabetes mellitus) Current Visit: Yes Status: Chronic (4) Hypertension Current Visit: Yes Status: Chronic Qualifiers: Hypertension type: essential hypertension Qualified Code(s): I10 - Essential (primary) hypertension Plan to address problem: BP is fair. Subjective Date of service: 01/04/17 Principal diagnosis: RLE PVD with gangrene Interval history: Patient is aphasic. Objective - Vital Signs Vital signs: Vital Signs - 12hr 01/03/17 01/04/17 01/04/17 22:28 01:18 08:15 Temperature 99.0 F 98.6 F Pulse Rate 98 H Pulse Rate [ 88 83 Left Radial] Pulse Rate [ 88 83 Right Radial] Respiratory 20 18 Rate Blood Pressure 145/76 Blood Pressure 142/70 117/70 [Left Arm] O2 Sat by Pulse 98 100 Oximetry - General Appearance General appearance: well-developed, well-nourished, appears stated age, obese, other (no distress) EENT: ATNC, PERRL, mucous membranes moist Neck: supple Respiratory: Present: Clear to Ascultation Cardiology: regular, S1S2, no murmurs Gastrointestinal: normoactive bowel sounds, no tenderness, obese Integumentary: no rash Neurologic: aphasic, other (right hemiparesis) Musculoskeletal: other (right AKA) Psychiatric: cooperative - Lab 01/04/17 05:05 01/04/17 05:05 Most recent lab results Calcium 8.6 mg/dL (8.4-10.2) 01/04/17 05:05
[2017-01-04] MEDS: ROXICODONE PO SCH (10:00)
[2017-01-04] MEDS: NOVOLOG SUB-Q SCH ×4 (10:10→18:13)
[2017-01-04] MEDS: LOVENOX SUB-Q SCH (10:37)
[2017-01-04] MEDS: ARICEPT PO SCH (10:44)
[2017-01-04] MEDS: NAMENDA XR PO SCH (10:45)
[2017-01-04] MEDS: COLCRYS PO SCH (10:46)
[2017-01-04] MEDS: THERAGRAN Tab PO SCH (10:47)
[2017-01-04] MEDS: celeXA PO SCH (10:48)
[2017-01-04] MEDS: FLEXERIL PO SCH (10:48)
[2017-01-04] MEDS: COLACE PO SCH ×2 (10:49→22:29)
[2017-01-04] MEDS: PROTONIX PO SCH (10:50)
[2017-01-04] MEDS: ASPIRIN PO SCH (10:50)
[2017-01-04] MEDS: FEOSOL PO SCH (10:50)
[2017-01-04] MEDS: DIOVAN PO SCH ×2 (10:50→22:28)
[2017-01-04] MEDS: TRADJENTA PO SCH (10:54)
--- NOTE | 2017-01-04 10:58 | Discharge Summary ---
Providers - Providers Date of Admission: 12/31/16 17:43 Attending physician: MARCIAL TOSCANO MD 12/31/16 22:13 Consult to Physician [CONS] Routine Consulting Provider: JOSÉ MIGUEL PARRA Reason For Exam: peripheral arterial disease Place consult to:: Office Notified:: yes Phone number called:: [phone] Was contact made?: Yes If yes, spoke with:: Time called:: 09:15 12/31/16 22:25 Consult to Physician [CONS] Routine Consulting Provider: ALONSO QUIROS Reason For Exam: chronic kidney disease Place consult to:: cellphone Notified:: yes 01/02/17 09:01 Consult to Physician [CONS] Routine Consulting Provider: KAROLINE MURGUIA Reason For Exam: RLE cellulitis/gangrene Place consult to:: DR. MURGUIA Notified:: OFFICE Phone number called:: [phone] Was contact made?: Yes If yes, spoke with:: LEFT MESSAGE ON ANSWERING MACHINE Time called:: 09:03 Comment:: CONSULT COMPLETED - ABHISHEK 01/03/17 08:59 Physical Therapy Evaluation and Treat [CONS] Routine Comment: Reason For Exam: debility Primary care physician: COMPARATIVE SOCIOLOGY PROFESSOR Hospitalization Condition: Fair Hospital course: 66-year-old -[place] female with multiple medical problems including hypertension insulin-dependent diabetes ,dementia ,peripheral arterial disease sent in from [facility] for gangrene of the right foot, maggots were found on her Right LE upon arrival in ED. She was treated with empiric antibiotics, she went on to have right [id number] amputation. She tolerated procedure well and was discharged in improved condition. Due to maggots being found in her lower extremity have family aspirates be placed in a different long-term. He now has returned her previous one, therefore arrangements were made for placement in in the long-term. She was continued on her chronic medications, she was given insulin while in hospital for diabetes , high blood pressure medications optimize her blood pressure was elevated. She had acute kidney injury that resolved with IV fluids, and she received consultation from nutrition services due to malnutrition. She was seen in conjunction with infectious disease and vascular surgery, high infection resolved with surgical intervention, therefore she did not need continuation of antibiotics.. Discharge diagnoses Gangrene of right lower extremity Atherosclerosis of [place] arteries of the extremity with gangrene Sepsis due to right lower extremity cellulitis Anemia Insulin-dependent diabetes uncontrolled, type II Hypertensive urgency Dementia Hyperlipidemia Moderate malnutrition Disposition: DC/[place]-03 SNF [facility] Time spent for discharge: 33 minutes Core Measure Documentation - Palliative Care Palliative Care/ Comfort Measures: Not Applicable - Core Measures Any of the following diagnoses?: none Exam - Physical Exam Narrative exam: General appearance: Present: no acute distress, well-nourished - EENT Eyes: Present: PERRL ENT: hearing intact, clear oral mucosa - Neck Neck: Present: supple, normal ROM - Respiratory Respiratory effort: normal Respiratory: bilateral: CTA - Cardiovascular Heart rate: 80 Rhythm: regular (80) Heart Sounds: Present: S1 & S2. Absent: rub, click - Extremities Extremities: Sp R Aka, post op changes seen, dressing not removed - Abdominal General gastrointestinal: Present: soft, non-tender, non-distended, normal bowel sounds Female genitourinary: Present: normal - Rectal Rectal Exam: deferred - Integumentary Integumentary: Present: clear, warm, dry - Musculoskeletal Musculoskeletal: gait normal, strength equal bilaterally - Psychiatric Psychiatric: appropriate mood/affect, lacks insight - Neurologic Neurologic: CNII-XII intact, moves all extremities - Constitutional Vitals: Temp Pulse Resp BP Pulse Ox 98.6 F 83 18 117/70 100 01/04/17 08:15 01/04/17 08:15 01/04/17 08:15 01/04/17 08:15 01/04/17 08:15 Plan Follow up with: PRIMARY CARE, [Primary Care Provider] - 3-5 Days Prescriptions: oxyCODONE /ACETAMINOPHEN [Percocet 5/325 mg] 1 tab PO Q6H PRN #7 tablet PRN Reason: Pain, Moderate (4-6)
--- NOTE | 2017-01-04 11:45 | Progress Note ---
Assessment and Plan Pt is s/p right AKA. Doing well post-op. Pt for d/c later to SNF later today. F/u in our office in 1-2 weeks or sooner if needed. Staple removal in 6-8 weeks. - Patient Problems (1) Atherosclerosis of [place] arteries of the extremities with gangrene Current Visit: No Status: Acute Qualifiers: Peripheral atherosclerosis location: lower extremity Laterality: right Qualified Code(s): I70.261 - Atherosclerosis of [place] arteries of extremities with gangrene, right leg Subjective Date of service: 01/04/17 Principal diagnosis: RLE PVD with gangrene Interval history: Pt awake without complaint at present. Objective - Constitutional Vitals: Vital Signs - 12hr 01/04/17 01/04/17 01:18 08:15 Temperature 99.0 F 98.6 F Pulse Rate [ 88 83 Left Radial] Pulse Rate [ 88 83 Right Radial] Respiratory 20 18 Rate Blood Pressure 142/70 117/70 [Left Arm] O2 Sat by Pulse 98 100 Oximetry General appearance: Present: no acute distress - EENT Eyes: EOM intact ENT: hearing intact - Respiratory Respiratory effort: normal Extremities: abnormal (right aka bandages removed, incision intact with zabrina in place, no erythema or drainage.) - Neurologic Neurologic: no focal deficits - Psychiatric Psychiatric: cooperative - Labs CBC & Chem 7: 01/04/17 05:05 01/04/17 05:05 Labs: Abnormal lab results 01/03/17 01/03/17 01/04/17 Range/Units 10:28 22:04 05:05 WBC 11.6 H (4.5-11.0) K/mm3 RBC 3.62 L (3.65-5.03) M/mm3 Hgb 8.8 L (10.1-14.3) gm/dl Hct 28.1 L (30.3-42.9) % MCV 78 L (79-97) fl MCH 24 L (28-32) pg RDW 17.0 H (13.2-15.2) % Lymph % (Auto) 12.3 L (13.4-35.0) % Seg Neutrophils % 81.2 H (40.0-70.0) % Seg Neutrophils # 9.4 H (1.8-7.7) K/mm3 Sodium (137-145) mmol/L Glucose (65-100) mg/dL POC Glucose 113 H 348 H (70-105) Alkaline Phosphatase (35-129) units/L Albumin (3.9-5) g/dL 01/04/17 01/04/17 Range/Units 05:05 08:17 WBC (4.5-11.0) K/mm3 RBC (3.65-5.03) M/mm3 Hgb (10.1-14.3) gm/dl Hct (30.3-42.9) % MCV (79-97) fl MCH (28-32) pg RDW (13.2-15.2) % Lymph % (Auto) (13.4-35.0) % Seg Neutrophils % (40.0-70.0) % Seg Neutrophils # (1.8-7.7) K/mm3 Sodium 136 L (137-145) mmol/L Glucose 223 H (65-100) mg/dL POC Glucose 163 H (70-105) Alkaline Phosphatase 160 H (35-129) units/L Albumin 2.1 L (3.9-5) g/dL
[2017-01-05] MEDS: NOVOLOG SUB-Q SCH ×3 (09:30→13:00)
[2017-01-05] MEDS: ROXICODONE PO SCH (09:59)
[2017-01-05] MEDS: DIOVAN PO SCH (10:10)
[2017-01-05] MEDS: FEOSOL PO SCH (10:11)
[2017-01-05] MEDS: celeXA PO SCH (10:11)
[2017-01-05] MEDS: PROTONIX PO SCH (10:11)
[2017-01-05] MEDS: COLACE PO SCH (10:11)
[2017-01-05] MEDS: THERAGRAN Tab PO SCH (10:11)
[2017-01-05] MEDS: FLEXERIL PO SCH (10:11)
[2017-01-05] MEDS: ASPIRIN PO SCH (10:11)
[2017-01-05] MEDS: COLCRYS PO SCH (10:12)
[2017-01-05] MEDS: LOVENOX SUB-Q SCH (10:12)
[2017-01-05] MEDS: TRADJENTA PO SCH (10:12)
[2017-01-05] MEDS: NAMENDA XR PO SCH (10:12)
[2017-01-05] MEDS: ARICEPT PO SCH (10:23)
[2017-01-05 10:56] VITALS: BP 150/81
== END 2017-01-05 15:36 | DRG 853 ==
LOC: ED 12:49 → 2B-SURG 17:43
PROVIDERS: ADMIT Internal Medicine; ATTEND Internal Medicine
PROC: 0Y6C0Z1 Detachment at Right Upper Leg, High, Open Approach (ICD-10-PCS; principal; 2017-01-02)
DX: A41.9 Sepsis, unspecified organism (principal); N17.0 Acute kidney failure with tubular necrosis; E44.0 Moderate protein-calorie malnutrition; L03.115 Cellulitis of right lower limb; I70.261 Atherosclerosis of native arteries of extremities with gangrene, right leg; D64.9 Anemia, unspecified; F03.90 Unspecified dementia, unspecified severity, without behavioral disturbance, psychotic disturbance, mood disturbance, and anxiety; F32.9 Major depressive disorder, single episode, unspecified; M10.9 Gout, unspecified; I12.9 Hypertensive chronic kidney disease with stage 1 through stage 4 chronic kidney disease, or unspecified chronic kidney disease; N18.9 Chronic kidney disease, unspecified; E11.65 Type 2 diabetes mellitus with hyperglycemia; E78.5 Hyperlipidemia, unspecified; K21.9 Gastro-esophageal reflux disease without esophagitis; E11.40 Type 2 diabetes mellitus with diabetic neuropathy, unspecified; E11.51 Type 2 diabetes mellitus with diabetic peripheral angiopathy without gangrene; Z83.3 Family history of diabetes mellitus; Z79.899 Other long term (current) drug therapy; Z79.82 Long term (current) use of aspirin; Z86.73 Personal history of transient ischemic attack (TIA), and cerebral infarction without residual deficits
CPT/HCPCS: 36415; 71010; 80048; 80053; 82140; 82805; 82962; 83036; 85025; 85610; 87040; A9270-GY; G8978-GP; G8979-GP; J0295; J0690; J1170; J1650; J1815; J1818; J2001; J2370; J2405; J2704; J3370; J7040

== ENCOUNTER 2017-01-28 08:45 | Inpatient (IN) | payer MEDICARE ==
[~2017-01-28 08:45] MED LIST: ANCEF/STERILE WATER 2 GM/20 ML 2 GM/20 ML SYRINGE IV NR
--- NOTE | 2017-01-28 09:15 | Anesthesia Day of Surgery ---
Anesthesia Day of Surgery - Day of Surgery Patient Examined: Yes Patient H&P Reviewed: Yes Patient is NPO: Yes
--- NOTE | 2017-01-28 09:15 | Anesthesia Consultation ---
Anesthesia Consult and Med Hx Date of service: 01/28/17 - Airway Anesthetic Teeth Evaluation: Edentulous ROM Head & Neck: Adequate Mental/Hyoid Distance: Adequate Mallampati Class: Class III Intubation Access Assessment: Probably Good - Pulmonary Exam CTA: Yes - Cardiac Exam Cardiac Exam: RRR - Pre-Operative Health Status ASA Pre-Surgery Classification: ASA3 Proposed Anesthetic Plan: General - Pulmonary Hx Smoking: Yes (chewing tobacco, quit 10 yrs ago ) - Cardiovascular System Hx Hypertension: Yes Hx Peripheral Vascular Disease: Yes - Central Nervous System CVA: Yes (x2; recent 03/2015) - Gastrointestinal Hx Ulcer: Yes (GASTRIC) - Hematic Hx Anemia: Yes - Other Systems Hx Obesity: Yes
[2017-01-28] MEDS ORDERED: PEPCID IV NR (10:00)
[2017-01-28] MEDS ORDERED: NACL 0.9% 1000 ML 1,000 ML IV SCH (10:00)
[2017-01-28] MEDS ORDERED: DIPRIVAN 10 MG/ML IV ONE ×2 (10:05→13:50)
[2017-01-28] MEDS ORDERED: DILAUDID ONE ×2 (10:06→13:55)
[2017-01-28] MEDS ORDERED: XYLOCAINE MPF 2% ONE ×2 (10:06→14:50)
[2017-01-28] MEDS: NACL 0.9% 1000 ML 1,000 ML IV SCH (10:36)
[2017-01-28] MEDS ORDERED: XYLOCAINE 1% 20 mL ONE (14:01)
[2017-01-28] MEDS ORDERED: SODIUM BICARBONATE ONE (14:01)
[2017-01-28] MEDS ORDERED: NACL 0.9% IR ONE ×2 (14:14)
[2017-01-28] MEDS ORDERED: ZOFRAN IV PRN (14:28)
[2017-01-28] MEDS ORDERED: DILAUDID IV PRN (14:28)
[2017-01-28] MEDS ORDERED: ZOFRAN ONE (14:50)
[2017-01-28] MEDS ORDERED: LACTATED RINGERS 1,000 ML IV SCH (15:00)
[2017-01-28] MEDS ORDERED: PERCOCET 5/325 PO PRN (15:05)
--- NOTE | 2017-01-28 15:07 | Operative Report ---
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 Post-operative diagnosis: Same Procedure name(s): Incision and drainage of the right above-knee dictation site hematoma Surgeon: Isaac Sol MD, RPVI Support Manager: None Anesthesia: General Findings 1. Right above-knee amputation site hematoma. 2. Well vascularized skin edges. Specimens: Hematoma for cultures. EBL: 50 mL IV fluids: 800 mL Urine output: None Disposition: The recovery Indications: Right above-knee amputation site hematoma. Procedure: Patient was brought to the operating room laid on the operative table in supine position. After endotracheal anesthesia was achieved patient was prepped in usual sterile fashion the zabrina were removed from the lateral portion of the incision. The hematoma was drained. The cultures were sent. The wound was irrigated with Pulsavac. It was packed using a Betadine soaked Curlex. Patient tolerated procedure well. At the end of the case all sponge and needle counts were correct.
[2017-01-28] MEDS ORDERED: NORCO 5/325 PO PRN (15:14)
[2017-01-28] MEDS ORDERED: D50W (25GM) IV PRN (15:14)
[2017-01-28] MEDS ORDERED: NARCAN 0.4 MG/1 ML IV PRN (15:14)
[2017-01-28] MEDS ORDERED: MORPHINE IV PRN ×2 (15:14)
--- NOTE | 2017-01-28 16:08 | Post Anesthesia Evaluation ---
- Post Anesthesia Evaluation Patient Participated: No (CVA) Airway Patent: Yes Stable Respiratory Function: Yes Temp > 96.8F: Yes Pain Manageable: Yes Adequeate Hydration: Yes Anesthesia Complications: No Block Receding Appropriately: Not Applicable
[2017-01-28] MEDS ORDERED: NACL 0.9% 1000 ML 1,000 ML ONE (16:44)
--- NOTE | 2017-01-28 16:48 | Admit Criteria Form ---
Admission Criteria Documentation: AMBULATORY SURGERY EXCEPTION CRITERIA Ambulatory Surgery Exception Criteria ( Place 'X' for any and all applicable criteria): Surgery or procedure performed on ambulatory basis may require inpatient stay for[A] ANY ONE of the following(1)(2)(3)(4)(5)(6)(7)(8)(9): [X] I. A preoperative situation, condition, or finding that warrants inpatient stay as indicated by ANY ONE of the following: [] a) Inpatient care needed because of severity of a disease or condition rather than the surgery (eg, severe cardiac or respiratory disease, severe infection) (15) (16 ) (17) (18) [] b) Emergent procedure (eg, angioplasty for acute ischemia)(19) [] c) Complex surgical approach or situation as indicated by ANY ONE of the following(3): [] i) Open approach needed instead of usual endoscopic, transcatheter, or other less invasive procedure [] ii) Difficult approach because of previous operation [] iii) Airway monitoring required after open neck procedures(20)(21) [] iv) Large mass requiring unusually extensive dissection [] v) Additional complicating feature requiring inpatient care (eg, drain management)(22(23): [X] d) Major surgery in a pt with high anesthetic risk as indicated by ANY ONE of the following (2)(3)(5)(7)(8): [X] i) ASA risk class III or higher (severe systemic disease impairing function) [D] [] ii) Advanced age (eg, older than 85 years)(14)(24) [] iii) Symptomatic heart failure(25) [] iv) Symptomatic asthma or COPD(8)(21) [] v) Morbid obesity with hemodynamic or respiratory problems(20)( 21)(26)(27) [] vi) Obstructive sleep apnea(20)(21) [] vii) Former premature infants who are younger than 60 weeks [] viii) High risk for severe postoperative abnormalities (eg, severe postoperative hypocalcemia after parathyroidectomy for severe hyperparathyroidism)(27)( 28) [] ix) Unstable angina(25) [] e) Drug-related risk requiring inpatient stay as indicated by ANY ONE of the following(5)(10)(14)(32)(33) [] i) Procedure requires discontinuing drugs or other therapy (eg , antiarrhythmic medication, antiseizure medication), which necessitates inpatient observation or treatment.(18)(31) [] ii) Major surgery and high risk drug use as indicated by ANY ONE of the following: [] 1) Active abuse of cocaine or similar drug [] 2) Monoamine oxidase inhibitor use [] 3) Other drug identified as posing risk [] f) Inadequate outpatient care situation as indicated by ANY ONE of the following(5)(10)(14)(32)(33) [] i) Patient lives remote from medical facility and procedure has urgent complication potential, and temporary nearby residence cannot be arranged [] ii) Patient will have postprocedure incapacitation and inadequate assistance at home, or alternative level of care cannot be arranged. [] iii) Patient will have long general anesthesia or procedure side effect resolution time, and competent person to stay with patient on first postoperative night at home or alternative level of care cannot be arranged. []iv) Other inadequate outpatient situation that cannot be handled by other means [] II. A perioperative event, condition, or finding that warrants inpatient stay as indicated by ANY ONE of the following (1)(2)(3): [] a) Inadequate physiologic recovery: cardiovascular, respiratory, or hemodynamic status not normal or near preoperative baseline(18) [] b) Hemodynamic instability [] c) Patient not alert with near normal or baseline mental status [] d) Temperature not normal or as expected and not appropriate for outpatient treatment of condition [] e) Ambulatory or appropriate activity level status not yet achieved post procedure [E](34)(35)(36) [] f) Operative site not appropriate (eg, unexpected or excessive drainage or bleeding) [] g) Postoperative effects not resolved or adequately managed (eg, significant pain or vomiting not appropriate for outpatient or next level of care)(10)(12) [] h) Complicating features requiring inpatient care as indicated by ANY ONE of the following(37): [] i) Severe complications of procedure (eg, bowel injury, airway compromise, vascular injury,severe hemorrhage) [] ii) Extensive (eg, dissection far beyond usual scope of procedure ) or prolonged (eg, 120 minutes beyond usual) surgery needed requiring inpatient postoperative care [] iii) Conversion to an open or complex procedure that requires inpatient care (eg, open vs laparoscopic cholecystectomy, abdominal vs vaginal hysterectomy)(38) [] iv) Comorbid condition or test result identified during or post procedure that requires inpatient care (7) [] v) Malignant hyperthermia(30) [] vi) Other complicating feature requiring inpatient care(22)(23) Inpatient stay may be needed until ALL of the following are present (1)(2)(3)(4) (5)(6)(10)(14)(33)(40): []a) Physiologic recovery: cardiovascular, respiratory, and hemodynamic status normal or near preoperative baseline []b) Hemodynamic stability []c) Patient alert, with near normal or baseline mental status []d) Temperature appropriate: patient afebrile or temperature appropriate for outpt treatment of condition []e) Activity level appropriate: ambulatory or appropriate activity level post procedure []f) Operative site appropriate as indicated by ALL of the following: []i) Site dry or with expected drainage []ii) Any blood noted is as expected for procedure. []g) Postoperative effects resolved or managed as indicated by ALL of the following: []i) Pain management appropriate for outpatient (or next level of) care(10) []ii) Minimal nausea and vomiting: if present, successfully treated with oral medication(12) []iii) Headache, dizziness, or drowsiness (if present) are mild. []h) Voiding status acceptable as indicated by ANY ONE of the following: []i) Voiding spontaneously []ii) No voiding but instructions given for follow-up in 6 to 8 hours []iii) Urinary catheter in place, and instructions given for follow-up []i) Complicating features requiring inpatient care manageable at a lower level of care(37) []j) Comorbid conditions manageable at a lower level of care(37) The original [employer] content created by [employer] has been revised. The portions of the content which have been revised are identified through the use of italic text or in bold, and [facility] [employer] has neither reviewed nor approved the modified material. All other unmodified content is copyright [employer]. Please see references footnoted in the original [employer] edition 2016 Admission Criteria Met: Yes
[2017-01-28] MEDS: NAMENDA XR PO SCH (18:30)
[2017-01-28] MEDS: NOVOLOG SUB-Q SCH ×2 (18:30→23:55)
[2017-01-28] MEDS ORDERED: NON-FORMULARY (Memantine Hcl [Namenda] 10 MG) PO SCH (22:00)
[2017-01-28] MEDS: DIOVAN PO SCH (22:55)
[2017-01-28] MEDS: COLACE PO SCH (23:55)
[2017-01-28] MEDS: LEVEMIR SUB-Q SCH (23:55)
[2017-01-29 07:58] LABS: Anion Gap 18 mmol/L; BUN/Creatinine Ratio 17.27; Blood Urea Nitrogen 19 mg/dL (7-17); Calcium 8.5 mg/dL (8.4-10.2); Carbon Dioxide 20 mmol/L (22-30); Chloride 108.4 mmol/L (98-107); Glucose 78 mg/dL (65-100); Potassium 3.9 mmol/L (3.6-5.0); Sodium 142 mmol/L (137-145)
[2017-01-29 08:07] LABS: Hematocrit 26.8 % (30.3-42.9); Hemoglobin 8.5 gm/dl (10.1-14.3)
[2017-01-29] MEDS: NOVOLOG SUB-Q SCH ×4 (08:39→22:54)
--- NOTE | 2017-01-29 09:20 | Progress Note ---
Subjective Date of service: 01/29/17 Principal diagnosis: hematoma Interval history: Patient seen on post-op day 1, satisfied with anesthesia, comfortable, not yet ambulating. Objective - Constitutional Vitals: Vital Signs - 12hr 01/28/17 01/28/17 01/29/17 22:00 22:55 00:00 Temperature 97.2 F L Pulse Rate 88 92 H Pulse Rate [ 78 Right] Respiratory 18 Rate Blood Pressure 130/78 141/62 O2 Sat by Pulse 97 97 Oximetry 01/29/17 01/29/17 04:00 07:00 Temperature 98.4 F 97 F L Pulse Rate 82 81 Pulse Rate [ Right] Respiratory 18 18 Rate Blood Pressure 116/52 117/62 O2 Sat by Pulse 97 97 Oximetry - Labs CBC & Chem 7: 01/29/17 07:00 01/29/17 07:00 Labs: Abnormal lab results 01/28/17 01/28/17 01/28/17 Range/Units 10:20 15:16 18:00 Hgb (10.1-14.3) gm/dl Hct (30.3-42.9) % Chloride (98-107) mmol/L Carbon Dioxide (22-30) mmol/L BUN (7-17) mg/dL POC Glucose 138 H 119 H 169 H (70-105) 01/28/17 01/29/17 01/29/17 Range/Units 21:29 07:00 07:00 Hgb 8.5 L (10.1-14.3) gm/dl Hct 26.8 L (30.3-42.9) % Chloride 108.4 H (98-107) mmol/L Carbon Dioxide 20 L (22-30) mmol/L BUN 19 H (7-17) mg/dL POC Glucose 156 H (70-105)
[2017-01-29] MEDS ORDERED: LOVENOX SUB-Q SCH (10:00)
[2017-01-29] MEDS ORDERED: MULTIVIT WITH CALCIUM IRON MIN PO SCH (10:00)
[2017-01-29] MEDS: DIOVAN PO SCH ×3 (10:47→22:52)
[2017-01-29] MEDS: AMARYL PO SCH ×3 (11:43→22:53)
[2017-01-29] MEDS: TRADJENTA PO SCH (12:40)
[2017-01-29] MEDS: ARICEPT PO SCH (12:44)
[2017-01-29] MEDS: ASPIRIN PO SCH (12:45)
[2017-01-29] MEDS: celeXA PO SCH (12:45)
[2017-01-29] MEDS: COLACE PO SCH ×2 (12:46→23:34)
[2017-01-29] MEDS: COLCRYS PO SCH (12:46)
[2017-01-29] MEDS: FEOSOL PO SCH (12:47)
[2017-01-29] MEDS: FLEXERIL PO SCH (12:47)
[2017-01-29] MEDS: LOVENOX SUB-Q SCH (12:48)
[2017-01-29] MEDS: NAMENDA XR PO SCH (12:49)
[2017-01-29] MEDS: PROTONIX PO SCH (12:53)
[2017-01-29] MEDS: THERAGRAN-M Tab PO SCH (12:53)
--- NOTE | 2017-01-29 13:23 | Progress Note ---
Assessment and Plan Wound vac has been placed by [facility]. D/c planning in progress for home vac. D/c back to SNF once vac approved. - Patient Problems (1) Non-healing amputation site Current Visit: Yes Status: Acute (2) Atherosclerosis of [place] arteries of the extremities with gangrene Current Visit: No Status: Acute Qualifiers: Peripheral atherosclerosis location: lower extremity Laterality: right Qualified Code(s): I70.261 - Atherosclerosis of [place] arteries of extremities with gangrene, right leg Subjective Date of service: 01/29/17 Principal diagnosis: hematoma Interval history: Pt eval'd earlier today. She was without complaint. Objective - Constitutional Vitals: Vital Signs - 12hr 01/29/17 01/29/17 04:00 07:00 Temperature 98.4 F 97 F L Pulse Rate 82 81 Respiratory 18 18 Rate Blood Pressure 116/52 117/62 O2 Sat by Pulse 97 97 Oximetry General appearance: Present: no acute distress - EENT Eyes: EOM intact ENT: hearing intact - Neck Neck: supple - Respiratory Respiratory effort: labored Extremities: abnormal (right aka, bandaged - CDI) - Neurologic Neurologic: no focal deficits - Psychiatric Psychiatric: cooperative - Labs CBC & Chem 7: 01/29/17 07:00 01/29/17 07:00 Labs: Abnormal lab results 01/28/17 01/28/17 01/28/17 Range/Units 15:16 18:00 21:29 Hgb (10.1-14.3) gm/dl Hct (30.3-42.9) % Chloride (98-107) mmol/L Carbon Dioxide (22-30) mmol/L BUN (7-17) mg/dL POC Glucose 119 H 169 H 156 H (70-105) 01/29/17 01/29/17 Range/Units 07:00 07:00 Hgb 8.5 L (10.1-14.3) gm/dl Hct 26.8 L (30.3-42.9) % Chloride 108.4 H (98-107) mmol/L Carbon Dioxide 20 L (22-30) mmol/L BUN 19 H (7-17) mg/dL POC Glucose (70-105)
--- NOTE | 2017-01-29 15:19 | Consultation ---
History of Present Illness - Reason for Consult Consult date: 01/29/17 AKA Stump Infection Requesting physician: LAURY LOPEZ - History of Present Illness Ms. Smith is a 66-year-old woman with PVD who is s/p a recent right AKA. She was discharged to a local nursing and it was noted that her stump was not healing well with bleeding from the site. She returned to the hospital and was noted to have a hematoma at the site. She underwent I&D at the stump with wound culture and placement of a wound vac. Preliminary micro data shows many PMNs and Gram negative bacilli. ID consultation is requested for additional treatment recommendations. Past History Past Medical History: PVD, stroke Past Surgical History: Other (right AKA) Social history: Family history: hypertension Medications and Allergies Allergies Allergy/AdvReac Type Severity Reaction Status Date / Time No Known Allergies Allergy Unverified 01/24/17 16:13 Home Medications Medication Instructions Recorded Confirmed Last Taken Type Aspirin [Aspirin TAB] 325 mg PO QDAY 08/04/15 01/28/17 01/27/17 09:00 History Atorvastatin Calcium [Lipitor] 20 mg PO QHS 08/04/15 01/28/17 01/27/17 09:00 History Citalopram [celeXA] 20 mg PO DAILY 08/04/15 01/28/17 01/27/17 09:00 History Colchicine 0.6 mg PO DAILY 08/04/15 01/28/17 01/27/17 09:00 History Docusate Sodium [Colace CAP] 100 mg PO BID 08/04/15 01/28/17 01/27/17 19:00 History Donepezil [Aricept] 10 mg PO QDAY 08/04/15 01/28/17 01/27/17 09:00 History Ferrous Sulfate [Feosol 325 MG tab] 325 mg PO QDAY 08/04/15 01/28/17 01/27/17 09 :00 History Glimepiride [Amaryl] 2 mg PO BID 08/04/15 01/28/17 01/27/17 19:00 History Insulin Detemir [Levemir VIAL] 35 unit SQ QHS 08/04/15 01/24/17 Unknown History Linagliptin [Tradjenta] 5 mg PO QDAY 08/04/15 01/28/17 01/27/17 09:00 History Memantine HCl [Namenda] 10 mg PO BID 08/04/15 01/28/17 01/27/17 19:00 History Multivit with Calcium,Iron,Min 1 tab PO DAILY 08/04/15 01/28/17 01/27/17 09:00 History [Multiple Vitamins For Women] Pantoprazole [Protonix TAB] 40 mg PO QDAY 08/04/15 01/28/17 01/27/17 09:00 History Cyclobenzaprine [Flexeril 10 MG 10 mg PO QDAY 12/25/16 01/28/17 01/27/17 09:00 History TAB] Insulin Regular, Human [HumuLIN R] 0 unit SQ ACHS 12/25/16 01/24/17 Unknown History Melatonin/Pyridoxine [Melatonin 3 3 mg PO QHS 12/25/16 01/28/17 01/27/17 19:00 History mg Tablet] Valsartan [Diovan] 160 mg PO BID tablet 01/04/17 01/28/17 01/27/17 19:00 Rx oxyCODONE /ACETAMINOPHEN [Percocet 1 tab PO Q6H PRN #7 tablet 01/04/17 01/24/17 Unknown Rx 5/325 mg] Active Meds: Active Medications Acetaminophen/Hydrocodone Bitart (Ollie 5/325) 2 each PO Q6H PRN PRN Reason: Pain, Moderate (4-6) Aspirin (Aspirin) 325 mg PO QDAY [facility] Atorvastatin Calcium (Lipitor) 20 mg PO QHS [facility] Last Admin: 01/28/17 22:55 Dose: 20 mg Citalopram Hydrobromide (Celexa) 20 mg PO DAILY [facility] Colchicine (Colcrys) 0.6 mg PO QDAY [facility] Cyclobenzaprine HCl (Flexeril) 10 mg PO QDAY [facility] Dextrose (D50w (25gm)) 50 ml IV PRN PRN PRN Reason: Hypoglycemia Docusate Sodium (Colace) 100 mg PO BID [facility] Last Admin: 01/28/17 23:55 Dose: 100 mg Donepezil HCl (Aricept) 10 mg PO QDAY [facility] Enoxaparin Sodium (Lovenox) 40 mg SUB-Q QDAY [facility] Ferrous Sulfate (Feosol) 325 mg PO QDAY [facility] Glimepiride (Amaryl) 2 mg PO BID [facility] Last Admin: 01/29/17 00:00 Dose: Not Given Sodium Chloride (Nacl 0.9% 1000 Ml) 1,000 mls @ 42 mls/hr IV DIRECT [facility] Last Admin: 01/28/17 10:36 Dose: 42 mls/hr Lactated Ringer's (Lactated Ringers) 1,000 mls @ 100 mls/hr IV DIRECT [facility] Insulin Aspart (Novolog) 0 units SUB-Q ACHS [facility] PRN Reason: Protocol Last Admin: 01/28/17 23:55 Dose: 1 units Insulin Detemir (Levemir) 35 units SUB-Q QHS [facility] Last Admin: 01/28/17 23:55 Dose: Not Given Linagliptin (Tradjenta) 5 mg PO QDAY [facility] Memantine (Namenda Xr) 28 mg PO DAILY [facility] Last Admin: 01/28/17 18:30 Dose: 28 mg Morphine Sulfate (Morphine) 2 mg IV Q4H PRN PRN Reason: Pain, Moderate (4-6) Morphine Sulfate (Morphine) 4 mg IV Q4H PRN PRN Reason: Pain , Severe (7-10) Multivitamins/Minerals (Theragran-M Tab) 1 each PO QDAY [facility] Naloxone HCl (Narcan 0.4 Mg/1 Ml) 0.1 mg IV Q2MIN PRN PRN Reason: Res Rate </= 8 or 02 SAT < 92% Oxycodone/Acetaminophen (Percocet 5/325) 1 tab PO Q6H PRN PRN Reason: Pain, Moderate (4-6) Pantoprazole Sodium (Protonix) 40 mg PO QDAY [facility] Valsartan (Diovan) 160 mg PO BID [facility] Last Admin: 01/28/17 22:55 Dose: 160 mg Review of Systems All systems: negative Constitutional: no fever, no chills Respiratory: no cough, no cough with sputum Gastrointestinal: no nausea, no vomiting, no diarrhea Integumentary: no rash, no pruritis Physical Examination - Constitutional Vitals: Vital Signs Temp Pulse Resp BP Pulse Ox 97 F L 81 18 117/62 97 01/29/17 07:00 01/29/17 07:00 01/29/17 07:00 01/29/17 07:00 01/29/17 07:00 Temperature -Last 24 Hours Temperature 97 F Temperature 98.4 F Temperature 97.2 F Temperature 97.4 F Temperature 97.4 F General appearance: Present: no acute distress, obese, other ( at bedside ) - Respiratory Respiratory effort: normal Respiratory: bilateral: CTA - Cardiovascular Rhythm: regular Heart Sounds: Present: S1 & S2 - Extremities Extremity abnormal: edema (edema of stump with wound vac in place at the edge, no crepitus or odor) - Abdominal General gastrointestinal: Present: soft, non-tender, non-distended - Integumentary Integumentary: Absent: jaundice, rash - Neurologic Neurologic: focal deficits (aphasic) Results - Labs CBC & Chem 7: 01/29/17 07:00 01/29/17 07:00 Labs: Abnormal lab results 01/28/17 01/28/17 01/28/17 Range/Units 15:16 18:00 21:29 Hgb (10.1-14.3) gm/dl Hct (30.3-42.9) % Chloride (98-107) mmol/L Carbon Dioxide (22-30) mmol/L BUN (7-17) mg/dL POC Glucose 119 H 169 H 156 H (70-105) 01/29/17 01/29/17 Range/Units 07:00 07:00 Hgb 8.5 L (10.1-14.3) gm/dl Hct 26.8 L (30.3-42.9) % Chloride 108.4 H (98-107) mmol/L Carbon Dioxide 20 L (22-30) mmol/L BUN 19 H (7-17) mg/dL POC Glucose (70-105) Microbiology 01/28/17 Unknown Thigh - Right Surgical Culture - Preliminary (many PMNs, few GNRs) Assessment and Plan - Patient Problems (1) Non-healing amputation site Current Visit: Yes Status: Acute Plan to address problem: 1. Patient is stable. Will defer antimicrobials pending further data. 2. Ordering CT right limb to determine if there is a deep-seated pocket. If none, a brief course of oral antibiotics based on results of wound culture.
--- NOTE | 2017-01-29 21:57 | Cat Scan Report ---
FINAL REPORT EXAM: CT LOWER EXTREMITY RT W CON HISTORY: Nonhealing stump. Rule out abscess TECHNIQUE: CT images are acquired through the right thigh arterial and delayed phases following intravenous administration of contrast. Transaxial , coronal and sagittal reformations are provided. PRIORS: None. FINDINGS: [id number] amputation. Dehiscent wound at the posterior-lateral aspect of patient's stump. Skin closure clips are otherwise present at incision site. Packing material is likely present. Intramedullary change in soft tissue attenuation at the distal aspect of the remaining right femur on axial series 4, images 116 versus 120 and 121. No focal organizing fluid collection seen within the soft tissues. No right femur periosteal reaction. Mild right hip osteoarthrosis. Extensive vascular calcification is noted. IMPRESSION: No focal soft tissue collection is identified status post above the right knee amputation with dehiscent wound. A change in soft tissue attenuation at the distal aspect of the remaining right femur may be secondary to infection. Consider MRI without contrast for more sensitive and specific evaluation. Extensive peripheral arterial disease may contribute to patient's symptoms. Notification initiated via [facility] it desktop support specialist immediately following the exam.
[2017-01-29] MEDS: NACL 0.9% 1000 ML 1,000 ML IV SCH (22:57)
[2017-01-29] MEDS: LEVEMIR SUB-Q SCH (23:00)
[2017-01-30] MEDS: NOVOLOG SUB-Q SCH ×4 (08:05→22:35)
[2017-01-30] MEDS: FEOSOL PO SCH (10:10)
[2017-01-30] MEDS: THERAGRAN-M Tab PO SCH (10:10)
[2017-01-30] MEDS: DIOVAN PO SCH ×2 (10:10→22:45)
[2017-01-30] MEDS: NAMENDA XR PO SCH (10:11)
[2017-01-30] MEDS: AMARYL PO SCH ×2 (10:12→23:45)
[2017-01-30] MEDS: ARICEPT PO SCH (10:12)
[2017-01-30] MEDS: PROTONIX PO SCH (10:12)
[2017-01-30] MEDS: FLEXERIL PO SCH (10:12)
[2017-01-30] MEDS: COLCRYS PO SCH (10:12)
[2017-01-30] MEDS: COLACE PO SCH ×2 (10:12→22:45)
[2017-01-30] MEDS: celeXA PO SCH (10:13)
[2017-01-30] MEDS: TRADJENTA PO SCH (10:14)
[2017-01-30] MEDS: LOVENOX SUB-Q SCH (10:15)
[2017-01-30] MEDS: ASPIRIN PO SCH (10:21)
--- NOTE | 2017-01-30 11:16 | Progress Note ---
Assessment and Plan Status post evacuation of the hematoma for right AKA. Gram-negative rods noted on the Gram stain. ID input is appreciated. We'll await final cultures decisions on antibiotics. We'll discharge to skilled nursing after VAC is approved and the decision is made on antibiotics. Subjective Date of service: 01/30/17 Principal diagnosis: hematoma Interval history: She denies any complaints. Objective - Exam Narrative Exam: Right AKA site is clean. No drainage. Wound VAC is on. - Constitutional Vitals: Vital Signs - 12hr 01/29/17 01/30/17 01/30/17 23:15 03:40 07:47 Temperature 98.4 F 98.2 F 98.1 F Pulse Rate 79 67 73 Respiratory 20 20 18 Rate Blood Pressure 138/78 114/63 126/68 O2 Sat by Pulse 99 99 100 Oximetry - Labs CBC & Chem 7: 01/29/17 07:00 01/29/17 07:00 Labs: Abnormal lab results 01/29/17 01/29/17 01/29/17 Range/Units 12:18 16:20 22:26 POC Glucose 254 H 260 H 178 H (70-105) 01/30/17 01/30/17 Range/Units 07:29 08:04 POC Glucose 42 L 199 H (70-105)
[2017-01-31] MEDS: LEVEMIR SUB-Q SCH ×2 (00:53→23:00)
--- NOTE | 2017-01-31 07:08 | Progress Note ---
Assessment and Plan - Patient Problems (1) Cellulitis Current Visit: Yes Status: Acute Qualifiers: Site of cellulitis: extremity Site of cellulitis of extremity: S Site of cellulitis of trunk: S Laterality: right Plan to address problem: 1. Probable cellulitis component of distal AKA stump. Culture of site is positive for Gram negative rods pending identification. 2. Will start oral Augmentin 875mg PO q12h empirically. Would complete 7-10 days of antibiotics along with continued local wound care. 3. Will follow final micro data. If no changes to therapy are needed, I will see patient on an as-needed basis. (2) Non-healing amputation site Current Visit: Yes Status: Acute Plan to address problem: Subjective Date of service: 01/31/17 Principal diagnosis: hematoma Interval history: No new clinical issues. Objective - Constitutional Vitals: Vital Signs Temp Pulse Resp BP Pulse Ox 97.7 F 79 20 113/64 98 01/31/17 04:10 01/31/17 04:10 01/31/17 04:10 01/31/17 04:10 01/31/17 04:10 Temperature -Last 24 Hours Temperature 97.7 F Temperature 98.2 F Temperature 98.4 F Temperature 98.4 F Temperature 97.5 F Temperature 98.1 F General appearance: Present: no acute distress, obese - Respiratory Respiratory effort: normal Respiratory: bilateral: CTA - Cardiovascular Rhythm: regular Heart Sounds: Present: S1 & S2 Extremity abnormal: edema (mild-moderate edema of stump with distal wound vac) - Gastrointestinal General gastrointestinal: Present: soft, non-distended - Integumentary Integumentary: clear, no rash (verbally communicative (not aphasic)) - Labs CBC & Chem 7: 01/29/17 07:00 01/29/17 07:00 Labs: Abnormal lab results 01/30/17 01/30/17 01/30/17 Range/Units 07:29 08:04 11:54 POC Glucose 42 L 199 H 125 H (70-105) 01/30/17 Range/Units 16:19 POC Glucose 118 H (70-105) Microbiology 01/28/17 Unknown Thigh - Right Surgical Culture - Preliminary Gram Negative Ethan Gram Negative Ethan#2 01/28/17 Unknown Thigh - Right Anaerobic Culture - Preliminary - Imaging and cardiology Other: report reviewed (CT Right Lower Ext - no focal collection; change in distal soft tissue attenuation concerning for infection)
[2017-01-31] MEDS: NACL 0.9% 1000 ML 1,000 ML IV SCH (07:40)
[2017-01-31] MEDS: NOVOLOG SUB-Q SCH ×4 (08:10→23:04)
[2017-01-31] MEDS: FLEXERIL PO SCH (10:30)
[2017-01-31] MEDS: PROTONIX PO SCH (10:30)
[2017-01-31] MEDS: FEOSOL PO SCH (10:30)
[2017-01-31] MEDS: COLACE PO SCH ×2 (10:30→22:55)
[2017-01-31] MEDS: LOVENOX SUB-Q SCH (10:30)
[2017-01-31] MEDS: ASPIRIN PO SCH (10:30)
[2017-01-31] MEDS: celeXA PO SCH (10:31)
[2017-01-31] MEDS: ARICEPT PO SCH (10:31)
[2017-01-31] MEDS: AUGMENTIN 875 MG PO SCH ×2 (10:31→22:55)
[2017-01-31] MEDS: NAMENDA XR PO SCH (10:31)
[2017-01-31] MEDS: COLCRYS PO SCH (10:32)
[2017-01-31] MEDS: DIOVAN PO SCH ×2 (10:32→22:57)
[2017-01-31] MEDS: THERAGRAN-M Tab PO SCH (10:32)
[2017-01-31] MEDS: TRADJENTA PO SCH (10:32)
[2017-01-31] MEDS: AMARYL PO SCH ×2 (10:33→22:57)
--- NOTE | 2017-01-31 17:20 | Progress Note ---
Assessment and Plan Discussed with case management. Patient's wound VAC has been approved and has been delivered to [facility]. We'll need to discuss antibiotic therapy with infectious disease service. Her surgical wound cultures were positive for 2 organisms, Klebsiella pneumoniae and gram-negative raj #2. Sensitivities suggest that resistant to ampicillin/ sulbactam. Likely will discharge the patient tomorrow, once antibiotics have been arranged. - Patient Problems (1) Non-healing amputation site Current Visit: Yes Status: Acute (2) Atherosclerosis of [place] arteries of the extremities with gangrene Current Visit: No Status: Acute Qualifiers: Peripheral atherosclerosis location: lower extremity Laterality: right Qualified Code(s): I70.261 - Atherosclerosis of [place] arteries of extremities with gangrene, right leg Subjective Date of service: 01/31/17 Principal diagnosis: hematoma Interval history: Patient was sleeping but easily awoke. She denies complaint at present. Objective - Constitutional Vitals: Vital Signs - 12hr 01/31/17 01/31/17 01/31/17 07:30 10:32 16:30 Temperature 98.1 F 97.6 F Pulse Rate 78 80 Respiratory 20 16 Rate Blood Pressure 113/58 113/58 152/83 O2 Sat by Pulse 96 Oximetry General appearance: Present: no acute distress - EENT Eyes: EOM intact ENT: hearing intact - Neck Neck: supple - Respiratory Respiratory effort: normal Extremities: abnormal (right ecnkr-[id number] amputation site wound VAC in place ) - Neurologic Neurologic: no focal deficits - Psychiatric Psychiatric: cooperative - Labs CBC & Chem 7: 01/29/17 07:00 01/29/17 07:00 Labs: Abnormal lab results 01/31/17 Range/Units 07:08 POC Glucose 53 L (70-105)
[2017-02-01] MEDS: NOVOLOG SUB-Q SCH ×3 (07:37→17:00)
[2017-02-01] MEDS: THERAGRAN-M Tab PO SCH (09:20)
[2017-02-01] MEDS: COLACE PO SCH (09:20)
[2017-02-01] MEDS: PROTONIX PO SCH (09:20)
[2017-02-01] MEDS: FLEXERIL PO SCH (09:20)
[2017-02-01] MEDS: DIOVAN PO SCH (09:20)
[2017-02-01] MEDS: COLCRYS PO SCH (09:21)
[2017-02-01] MEDS: ARICEPT PO SCH (09:21)
[2017-02-01] MEDS: ASPIRIN PO SCH (09:21)
[2017-02-01] MEDS: NAMENDA XR PO SCH (09:21)
[2017-02-01] MEDS: FEOSOL PO SCH (09:21)
[2017-02-01] MEDS: TRADJENTA PO SCH (09:22)
[2017-02-01] MEDS: AUGMENTIN 875 MG PO SCH (09:22)
[2017-02-01] MEDS: celeXA PO SCH (09:22)
[2017-02-01] MEDS: AMARYL PO SCH (09:22)
[2017-02-01] MEDS: LOVENOX SUB-Q SCH (09:23)
--- NOTE | 2017-02-01 10:48 | Progress Note ---
Assessment and Plan Vac approved and waiting for pt at SNF. Discussed with ID service, will change oral abx to Levaquin 500mg po qd. D/c back to SNF today, f/u in our office and the ID service in 2 wks. - Patient Problems (1) Non-healing amputation site Current Visit: Yes Status: Acute (2) Atherosclerosis of [place] arteries of the extremities with gangrene Current Visit: No Status: Acute Qualifiers: Peripheral atherosclerosis location: lower extremity Laterality: right Qualified Code(s): I70.261 - Atherosclerosis of [place] arteries of extremities with gangrene, right leg Subjective Date of service: 02/01/17 Principal diagnosis: hematoma Interval history: Pt awake without specific complaint. Objective - Constitutional Vitals: Vital Signs - 12hr 01/31/17 02/01/17 02/01/17 22:57 01:28 07:00 Temperature 98.0 F 97.4 F L Pulse Rate 102 H 78 73 Respiratory 20 20 Rate Blood Pressure 150/78 133/69 140/70 O2 Sat by Pulse 100 96 Oximetry General appearance: Present: no acute distress - EENT Eyes: EOM intact ENT: hearing intact - Respiratory Respiratory effort: normal Extremities: abnormal (RLE AKA with wound vac in place.) - Neurologic Neurologic: no focal deficits - Psychiatric Psychiatric: cooperative - Labs CBC & Chem 7: 01/29/17 07:00 01/29/17 07:00 Labs: Abnormal lab results 01/31/17 Range/Units 22:03 POC Glucose 167 H (70-105)
--- NOTE | 2017-02-01 10:54 | Discharge Summary ---
<GEORGIANA STEPHEN - Last Filed: 02/01/17 10:49> Providers - Providers Date of Admission: 01/28/17 15:14 Date of discharge: 02/01/17 Attending physician: ISAAC SOL 01/28/17 Consult to Case Management [CONS] Routine Services Needed at Discharge: Wound Vac Notified:: cm notified Additional Physician Instructions: arrange for wound vac and return to SNF 01/29/17 08:00 Consult to Wound/ET Nurse [CONS] Routine Reason For Exam: Place wound vac in am 01/29/17 10:25 Consult to Physician [CONS] Routine Consulting Provider: KAROLINE JOSE Reason For Exam: AKA stump infection Place consult to:: Rebeca Notified:: yes Phone number called:: [phone] Time called:: 15:05 Comment:: Violet spoke to Dr Jose Primary care physician: LINDA MCCANN Hospitalization Reason for admission: Surgical debridement of right AKA. Condition: Stable Procedures: Operative Report Operative Report: Date of procedure: 01/28/2017 Pre-operative diagnosis: Hematoma of the right above-knee amputation stump. Post-operative diagnosis: Same Procedure name(s): Incision and drainage of the right above-knee dictation site hematoma Surgeon: Isaac Sol MD, RPVI Navigation Officer: None Anesthesia: General Findings 1. Right above-knee amputation site hematoma. 2. Well vascularized skin edges. Specimens: Hematoma for cultures. EBL: 50 mL IV fluids: 800 mL Urine output: None Disposition: The recovery Indications: Right above-knee amputation site hematoma. Hospital course: Pt was admitted in prep for the above stated surgery. This was performed without complication. A wound care nurse consult was placed for application of a wound vac. Discharge planning was initiated for wound vac approval for outpt use. Surgical cxs were positive for GNRs (Klebsiella Pneumoniae), and an ID consult placed. The pt will be d/c'd on Levaquin 500mg po daily for 10 days. She will need to f/u with our office in 2 wks. Disposition: DC/[place]-[facility] SNF [facility] C[facility] - Discharge Diagnoses (1) Non-healing amputation site Status: Acute (2) Atherosclerosis of [place] arteries of the extremities with gangrene Status: Acute QualifierTitle: Peripheral atherosclerosis location: lower extremity Laterality: right Qualified Code(s): I70.261 - Atherosclerosis of [place] arteries of extremities with gangrene, right leg Core Measure Documentation - Palliative Care Palliative Care/ Comfort Measures: Not Applicable - Core Measures Any of the following diagnoses?: history only Exam - Constitutional Vitals: Temp Pulse Resp BP Pulse Ox 97.4 F L 73 20 140/70 96 02/01/17 07:00 02/01/17 07:00 02/01/17 07:00 02/01/17 07:00 02/01/17 07:00 General appearance: Present: no acute distress - EENT Eyes: Present: EOM intact ENT: hearing intact - Neck Neck: Present: supple - Respiratory Respiratory effort: normal - Extremities Extremities: abnormal (RLE wound vac in place) - Psychiatric Psychiatric: cooperative - Neurologic Neurologic: no focal deficits Plan Activity: advance as tolerated Weight Bearing Status: Weight Bear as Tolerated Diet: diabetic Wound: per wound nurse instructions (Wound vac protocol) Follow up with: ISAAC SOL MD [Staff Physician] - 14 Days KAROLINE JOSE MD [Staff Physician] - 14 Days Prescriptions: Levofloxacin [Levaquin TAB] 500 mg PO QDAY #9 tablet <MARCO NICHOLS - Last Filed: 02/01/17 11:54> Providers - Providers Date of Admission: 01/28/17 15:14 Attending physician: ISAAC SOL 01/28/17 Consult to Case Management [CONS] Routine Services Needed at Discharge: Wound Vac Notified:: cm notified Additional Physician Instructions: arrange for wound vac and return to SNF 01/29/17 08:00 Consult to Wound/ET Nurse [CONS] Routine Reason For Exam: Place wound vac in am 01/29/17 10:25 Consult to Physician [CONS] Routine Consulting Provider: KAROLINE JOSE Reason For Exam: AKA stump infection Place consult to:: Rebeca Notified:: yes Phone number called:: [phone] Time called:: 15:05 Comment:: Violet spoke to Dr Jose Primary care physician: LINDA MCCANN Hospitalization Hospital course: Discussed with Dr. Jose. If tolerated levoquin without issue (watch for 2- 3 hrs), then can be discharged. Exam - Constitutional Vitals: Temp Pulse Resp BP Pulse Ox 97.4 F L 73 20 140/70 96 02/01/17 07:00 02/01/17 07:00 02/01/17 07:00 02/01/17 07:00 02/01/17 07:00
[2017-02-01] MEDS ORDERED: LEVAQUIN PO SCH (12:00)
--- NOTE | 2017-02-01 13:41 | Progress Note ---
Assessment and Plan - Patient Problems (1) Cellulitis Current Visit: Yes Status: Acute Qualifiers: Site of cellulitis: extremity Site of cellulitis of extremity: S Site of cellulitis of trunk: S Laterality: right Plan to address problem: 1. Culture data reviewed. Resistance of organisms to Augmentin. 2. Recommend Levaquin to complete a total of 14 days, as the wound vac has been removed. 3. Monitor for a short period after first dose for any adverse events as there are possible drug interactions with other therapies. (2) Non-healing amputation site Current Visit: Yes Status: Acute Subjective Date of service: 02/01/17 Principal diagnosis: hematoma Interval history: No new complaints. For discharge to home today. Objective - Constitutional Vitals: Vital Signs Temp Pulse Resp BP Pulse Ox 97.4 F L 73 20 140/70 96 02/01/17 07:00 02/01/17 07:00 02/01/17 07:00 02/01/17 07:00 02/01/17 07:00 Temperature -Last 24 Hours Temperature 97.4 F Temperature 98.0 F Temperature 98.1 F Temperature 97.6 F General appearance: Present: no acute distress, obese - Respiratory Respiratory effort: normal Respiratory: bilateral: CTA - Cardiovascular Rhythm: regular Heart Sounds: Present: S1 & S2 Extremity abnormal: edema (mild edema of right AKA stump; wound vac removed) - Gastrointestinal General gastrointestinal: Present: soft, non-distended - Integumentary Integumentary: clear - Neurologic Neurologic: moves all extremities - Labs CBC & Chem 7: 01/29/17 07:00 01/29/17 07:00 Labs: Abnormal lab results 01/31/17 Range/Units 22:03 POC Glucose 167 H (70-105) Microbiology 01/28/17 Unknown Thigh - Right Surgical Culture - Preliminary Klebsiella Pneumoniae Proteus Mirabilis 01/28/17 Unknown Thigh - Right Anaerobic Culture - Final
[2017-02-01 16:14] VITALS: BP 143/70
== END 2017-02-01 18:10 | DRG 565 ==
LOC: OR 08:45 → 2B-SURG 15:14
PROVIDERS: ADMIT Surgery Vascular Surgery; ATTEND Surgery Vascular Surgery
PROC: 0Y9F0ZZ Drainage of Right Knee Region, Open Approach (ICD-10-PCS; principal; 2017-01-28)
DX: T87.89 Other complications of amputation stump (principal); L03.115 Cellulitis of right lower limb; I70.261 Atherosclerosis of native arteries of extremities with gangrene, right leg; E11.51 Type 2 diabetes mellitus with diabetic peripheral angiopathy without gangrene; Z86.73 Personal history of transient ischemic attack (TIA), and cerebral infarction without residual deficits; Z82.49 Family history of ischemic heart disease and other diseases of the circulatory system; Y83.5 Amputation of limb(s) as the cause of abnormal reaction of the patient, or of later complication, without mention of misadventure at the time of the procedure; Y92.9 Unspecified place or not applicable
CPT/HCPCS: 36415; 80048; 82962; 85014; 85018; 87075; 87076; 87116; 87186; A4217; A9270-GY; J0690; J1170; J1650; J1815; J1818; J2405; J2704; J7030; Q9967

== ENCOUNTER 2017-03-23 00:53 | Emergency (ER) | payer MEDICARE ==
--- NOTE | 2017-03-23 01:23 | Emergency Department Report ---
ED General Adult HPI - General Chief complaint: Extremity Problem,Nontraumatic Stated complaint: ABNORMAL LABS Time Seen by Provider: 03/23/17 01:21 Source: EMS Mode of arrival: Stretcher Limitations: No Limitations, Physical Limitation - History of Present Illness Initial comments: Patient is a 66-year-old female past medical history of peripheral vascular disease right [id number] amputation, diabetes who presents with abnormal vascular study. Patient was sent in via her PCP. There was a arterial duplex ordered which showed a nonocclusive moderate to severe artery stenosis. With an ERIC of 0.55. Patient denies having any pain in her leg. Patient is able to move her leg. Patient denies having anything that makes her symptoms better or worse. Patient denies having any other symptoms. - Related Data Home Medications Medication Instructions Recorded Confirmed Last Taken Aspirin [Aspirin TAB] 325 mg PO QDAY 08/04/15 01/28/17 01/27/17 09:00 Atorvastatin Calcium [Lipitor] 20 mg PO QHS 08/04/15 01/28/17 01/27/17 09:00 Citalopram [celeXA] 20 mg PO DAILY 08/04/15 01/28/17 01/27/17 09:00 Colchicine 0.6 mg PO DAILY 08/04/15 01/28/17 01/27/17 09:00 Docusate Sodium [Colace CAP] 100 mg PO BID 08/04/15 01/28/17 01/27/17 19:00 Donepezil [Aricept] 10 mg PO QDAY 08/04/15 01/28/17 01/27/17 09:00 Ferrous Sulfate [Feosol 325 MG tab] 325 mg PO QDAY 08/04/15 01/28/17 01/27/17 09 :00 Glimepiride [Amaryl] 2 mg PO BID 08/04/15 01/28/17 01/27/17 19:00 Insulin Detemir [Levemir VIAL] 35 unit SQ QHS 08/04/15 01/24/17 Unknown Linagliptin [Tradjenta] 5 mg PO QDAY 08/04/15 01/28/17 01/27/17 09:00 Memantine HCl [Namenda] 10 mg PO BID 08/04/15 01/28/17 01/27/17 19:00 Multivit with Calcium,Iron,Min 1 tab PO DAILY 08/04/15 01/28/17 01/27/17 09:00 [Multiple Vitamins For Women] Pantoprazole [Protonix TAB] 40 mg PO QDAY 08/04/15 01/28/17 01/27/17 09:00 Cyclobenzaprine [Flexeril 10 MG 10 mg PO QDAY 12/25/16 01/28/17 01/27/17 09:00 TAB] Insulin Regular, Human [HumuLIN R] 0 unit SQ ACHS 12/25/16 01/24/17 Unknown Melatonin/Pyridoxine [Melatonin 3 3 mg PO QHS 12/25/16 01/28/17 01/27/17 19:00 mg Tablet] Previous Rx's Medication Instructions Recorded Last Taken Type Valsartan [Diovan] 160 mg PO BID tablet 01/04/17 01/27/17 19:00 Rx oxyCODONE /ACETAMINOPHEN [Percocet 1 tab PO Q6H PRN #7 tablet 01/04/17 Unknown Rx 5/325 mg] Levofloxacin [Levaquin TAB] 500 mg PO QDAY #9 tablet 02/01/17 Unknown Rx Allergies Allergy/AdvReac Type Severity Reaction Status Date / Time No Known Allergies Allergy Unverified 01/24/17 16:13 ED Review of Systems ROS: Stated complaint: ABNORMAL LABS Other details as noted in HPI Constitutional: denies: chills, fever Eyes: denies: eye pain, eye discharge, vision change ENT: denies: ear pain, throat pain Respiratory: denies: cough, shortness of breath, wheezing Cardiovascular: denies: chest pain, palpitations Endocrine: no symptoms reported Gastrointestinal: denies: abdominal pain, nausea, diarrhea Genitourinary: denies: urgency, dysuria, discharge Musculoskeletal: as per HPI. denies: back pain, joint swelling, arthralgia Skin: denies: rash, lesions Neurological: denies: headache, weakness, paresthesias Psychiatric: denies: anxiety, depression Hematological/Lymphatic: denies: easy bleeding, easy bruising ED Past Medical Hx - Past Medical History Hx Hypertension: Yes Hx CVA: Yes Hx Diabetes: Yes Hx GERD: Yes Hx Renal Disease: Yes (CKD) Hx Arthritis: Yes Hx Asthma: Yes Hx HIV: No Additional medical history: hyperlipidemia, SAH, hypokalemia, diabetic neuropathy, aphasia, insomnia, gastric ulcer with hemorrhage. - Social History Smoking Status: Never Smoker Substance Use Type: None - Medications Home Medications: Home Medications Medication Instructions Recorded Confirmed Last Taken Type Aspirin [Aspirin TAB] 325 mg PO QDAY 08/04/15 01/28/17 01/27/17 09:00 History Atorvastatin Calcium [Lipitor] 20 mg PO QHS 08/04/15 01/28/17 01/27/17 09:00 History Citalopram [celeXA] 20 mg PO DAILY 08/04/15 01/28/17 01/27/17 09:00 History Colchicine 0.6 mg PO DAILY 08/04/15 01/28/17 01/27/17 09:00 History Docusate Sodium [Colace CAP] 100 mg PO BID 08/04/15 01/28/17 01/27/17 19:00 History Donepezil [Aricept] 10 mg PO QDAY 08/04/15 01/28/17 01/27/17 09:00 History Ferrous Sulfate [Feosol 325 MG tab] 325 mg PO QDAY 08/04/15 01/28/17 01/27/17 09 :00 History Glimepiride [Amaryl] 2 mg PO BID 08/04/15 01/28/17 01/27/17 19:00 History Insulin Detemir [Levemir VIAL] 35 unit SQ QHS 08/04/15 01/24/17 Unknown History Linagliptin [Tradjenta] 5 mg PO QDAY 08/04/15 01/28/17 01/27/17 09:00 History Memantine HCl [Namenda] 10 mg PO BID 08/04/15 01/28/17 01/27/17 19:00 History Multivit with Calcium,Iron,Min 1 tab PO DAILY 08/04/15 01/28/17 01/27/17 09:00 History [Multiple Vitamins For Women] Pantoprazole [Protonix TAB] 40 mg PO QDAY 08/04/15 01/28/17 01/27/17 09:00 History Cyclobenzaprine [Flexeril 10 MG 10 mg PO QDAY 12/25/16 01/28/17 01/27/17 09:00 History TAB] Insulin Regular, Human [HumuLIN R] 0 unit SQ ACHS 12/25/16 01/24/17 Unknown History Melatonin/Pyridoxine [Melatonin 3 3 mg PO QHS 12/25/16 01/28/17 01/27/17 19:00 History mg Tablet] Valsartan [Diovan] 160 mg PO BID tablet 01/04/17 01/28/17 01/27/17 19:00 Rx oxyCODONE /ACETAMINOPHEN [Percocet 1 tab PO Q6H PRN #7 tablet 01/04/17 01/24/17 Unknown Rx 5/325 mg] Levofloxacin [Levaquin TAB] 500 mg PO QDAY #9 tablet 02/01/17 Unknown Rx ED Physical Exam - General Limitations: No Limitations, Physical Limitation General appearance: alert, in no apparent distress - Head Head exam: Present: atraumatic, normocephalic - Eye Eye exam: Present: normal appearance - ENT ENT exam: Present: mucous membranes moist - Neck Neck exam: Present: normal inspection - Respiratory Respiratory exam: Present: normal lung sounds bilaterally. Absent: respiratory distress - Cardiovascular Cardiovascular Exam: Present: regular rate, normal rhythm. Absent: systolic murmur, diastolic murmur, rubs, gallop - GI/Abdominal GI/Abdominal exam: Present: soft, normal bowel sounds - Extremities Exam Extremities exam: Present: other (nonpalpable pulse dopable pulse on left leg right [id number] amputation) - Back Exam Back exam: Present: normal inspection - Neurological Exam Neurological exam: Present: alert, oriented X3 - Psychiatric Psychiatric exam: Present: normal affect, normal mood - Skin Skin exam: Present: warm, dry, intact, normal color. Absent: rash ED Course Vital Signs 03/23/17 03/23/17 03/23/17 01:24 01:31 02:01 Pulse Rate 65 66 71 Respiratory 14 12 15 Rate Blood Pressure 126/84 126/84 O2 Sat by Pulse 98 99 99 Oximetry 03/23/17 02:31 Pulse Rate 65 Respiratory 14 Rate Blood Pressure 126/84 O2 Sat by Pulse 99 Oximetry ED Medical Decision Making - Lab Data Result diagrams: 03/23/17 01:44 03/23/17 01:44 Lab Results 03/23/17 03/23/17 Range/Units 01:44 01:44 WBC 5.4 (4.5-11.0) K/mm3 RBC 4.65 (3.65-5.03) M/mm3 Hgb 11.6 (10.1-14.3) gm/dl Hct 35.9 (30.3-42.9) % MCV 77 L (79-97) fl MCH 25 L (28-32) pg MCHC 32 (30-34) % RDW 18.4 H (13.2-15.2) % Plt Count 147 (140-440) K/mm3 Lymph % (Auto) 36.4 H (13.4-35.0) % [place] % (Auto) 5.5 (0.0-7.3) % Eos % (Auto) 4.5 H (0.0-4.3) % Baso % (Auto) 1.4 (0.0-1.8) % Lymph # 2.0 (1.2-5.4) K/mm3 [place] # 0.3 (0.0-0.8) K/mm3 Eos # 0.2 (0.0-0.4) K/mm3 Baso # 0.1 (0.0-0.1) K/mm3 Seg Neutrophils % 52.2 (40.0-70.0) % Seg Neutrophils # 2.8 (1.8-7.7) K/mm3 Sodium 143 (137-145) mmol/L Potassium 3.9 (3.6-5.0) mmol/L Chloride 103.4 (98-107) mmol/L Carbon Dioxide 26 (22-30) mmol/L Anion Gap 18 mmol/L BUN 25 H (7-17) mg/dL Creatinine 1.0 (0.7-1.2) mg/dL Estimated GFR > 60 ml/min BUN/Creatinine Ratio 25.00 % Glucose 191 H (65-100) mg/dL Calcium 9.1 (8.4-10.2) mg/dL Total Bilirubin 0.20 (0.1-1.2) mg/dL AST 10 (5-40) units/L ALT 11 (7-56) units/L Alkaline Phosphatase 133 H (35-129) units/L Total Protein 7.2 (6.3-8.2) g/dL Albumin 3.5 L (3.9-5) g/dL Albumin/Globulin Ratio 0.9 % - Medical Decision Making Chief medical diagnosis: Peripheral vascular disease Differential medical diagnosis: Diabetes neuropathy, metabolic [place] CBC, CMP and vascular surgeon consult Discussed with Dr. oBo vascular surgeon magnetic resonance imaging coordinator. He states that this is just patient's stable peripheral vascular disease. Patient will be advised to take aspirin and to abstain from smoking. Discussed plan with patient and her daughter. They agree with plan additional verbal discharge instructions were given. Critical care attestation.: If time is entered above; I have spent that time in minutes in the direct care of this critically ill patient, excluding procedure time. ED Disposition Clinical Impression: PVD (peripheral vascular disease), IDDM (insulin dependent diabetes mellitus) Hypertension Qualifiers: Hypertension type: unspecified Qualified Code(s): I10 - Essential (primary) hypertension Disposition: - TO HOME OR SELFCARE Is pt being admited?: No Does the pt Need Aspirin: No Condition: Stable Instructions: Diabetes Mellitus Type 2 in Adults (ED), Peripheral Vascular Disorders (ED), Hypertension (ED) Additional Instructions: Please see Dr. Boo on Saturday Referrals: ELVA BOO MD [Staff Physician] - 3-5 Days
[2017-03-23 01:59] VITALS: BP 126/84
[2017-03-23 02:16] LABS: Basophils % (Auto) 1.4 % (0.0-1.8); Eosinophils % (Auto) 4.5 % (0.0-4.3); Hematocrit 35.9 % (30.3-42.9); Hemoglobin 11.6 gm/dl (10.1-14.3); Mean Corpuscular HGB Conc 32 % (30-34); Mean Corpuscular Volume 77 fl (79-97); Platelet Count 147 K/mm3 (140-440); Red Blood Count 4.65 M/mm3 (3.65-5.03); Red Cell Distribution Width 18.4 % (13.2-15.2); White Blood Count 5.4 K/mm3 (4.5-11.0)
[2017-03-23 02:23] LABS: Mean Corpuscular Hemoglobin 25 pg (28-32)
[2017-03-23 02:24] LABS: Alanine Aminotransferase 11 units/L (7-56); Albumin 3.5 g/dL (3.9-5); Albumin/Globulin Ratio 0.9 %; Alkaline Phosphatase 133 units/L (35-129); Anion Gap 18 mmol/L; Blood Urea Nitrogen 25 mg/dL (7-17); Calcium 9.1 mg/dL (8.4-10.2); Carbon Dioxide 26 mmol/L (22-30); Chloride 103.4 mmol/L (98-107); Glucose 191 mg/dL (65-100); Potassium 3.9 mmol/L (3.6-5.0); Sodium 143 mmol/L (137-145); Total Protein 7.2 g/dL (6.3-8.2)
== END 2017-03-23 07:42 | disposition home or self-care (01) ==
LOC: ED 00:53
DX: I73.9 Peripheral vascular disease, unspecified (principal); I10 Essential (primary) hypertension; E11.8 Type 2 diabetes mellitus with unspecified complications; K21.9 Gastro-esophageal reflux disease without esophagitis; J45.909 Unspecified asthma, uncomplicated
CPT/HCPCS: 36415; 80053; 85025

== ENCOUNTER 2017-05-22 06:09 | Day surgery (SDC) | payer MEDICARE ==
[~2017-05-22 06:09] MED LIST changes: +NACL 0.9% 1000 ML 1,000 ML IV SCH
[2017-05-22 07:02] LABS: Basophils % (Auto) 1.3 % (0.0-1.8); Eosinophils % (Auto) 4.2 % (0.0-4.3); Hematocrit 35.5 % (30.3-42.9); Hemoglobin 11.2 gm/dl (10.1-14.3); Mean Corpuscular HGB Conc 32 % (30-34); Mean Corpuscular Volume 76 fl (79-97); Platelet Count 156 K/mm3 (140-440); Red Blood Count 4.68 M/mm3 (3.65-5.03); Red Cell Distribution Width 17.5 % (13.2-15.2); White Blood Count 5.7 K/mm3 (4.5-11.0)
[2017-05-22 07:13] LABS: Anion Gap 15 mmol/L; BUN/Creatinine Ratio 25; Blood Urea Nitrogen 27 mg/dL (7-17); Calcium 9.1 mg/dL (8.4-10.2); Carbon Dioxide 28 mmol/L (22-30); Glucose 99 mg/dL (65-100); Mean Corpuscular Hemoglobin 24 pg (28-32); Potassium 4.2 mmol/L (3.6-5.0); Sodium 142 mmol/L (137-145)
[2017-05-22 07:19] LABS: INR 0.95 (0.87-1.13)
[2017-05-22 07:20] LABS: Partial Thromboplastin Time 31.7 Sec. (24.2-36.6)
[2017-05-22] MEDS ORDERED: CATHFLO ONE (08:05)
[2017-05-22] MEDS ORDERED: HEPARIN/NS 5000 UNIT/500ML(CATH LAB) 1,000 ML IR ONE (08:05)
[2017-05-22] MEDS ORDERED: XYLOCAINE 2% INFILTRATI ONE (08:05)
[2017-05-22] MEDS ORDERED: HEPARIN 10,000 UNITS/10 ML ONE (08:05)
[2017-05-22] MEDS ORDERED: WATER FOR INJ (PF) 0 ML ONE (08:06)
[2017-05-22] MEDS: SUBLIMAZE ONE ×4 (08:48→09:46)
[2017-05-22] MEDS: VERSED ONE ×5 (08:49→09:43)
[2017-05-22] MEDS ORDERED: APRESOLINE ONE (09:54)
--- NOTE | 2017-05-22 10:24 | Operative Report ---
Operative Report Operative Report: Date of procedure: 05/22/2017 Pre-operative diagnosis: Nonhealing left foot ulcer. Post-operative diagnosis: Same Procedure name(s): 1. Ultrasound-guided access of the right common femoral artery. 2. Introduction of the catheter into the aorta. 3. Aortogram. 4. Contralateral cannulation of the left SFA. 5. Left leg runoff. 6. Selective cannulation of the left popliteal artery. 7. Left SFA atherectomy using Hawk one device. 8. Left SFA balloon angioplasty using 5 x 16 [place] balloon. 9. Left SFA balloon angioplasty using 5 x 60 impact drug-eluting balloon. 10. Left anterior tibial artery atherectomy with Hawk one device. 11. Left anterior tibial artery balloon angioplasty using a 3 x 2 10 tapered balloon. 12. Completion angiogram. 13. Closure of the right common femoral artery with 6 Macanese pro glide device. 14. Radiologic supervision and interpretation. Surgeon: Isaac Sol MD Window Installer: None Anesthesia: Local with IV sedation. Findings 1. No significant stenosis of the aorta, common iliac arteries, external iliac arteries, common femoral arteries. 2. Mid SFA stenosis. 3. Multiple occlusions of anterior tibial artery. 4.Complete occlusion of the peroneal and posterior tibial artery. 5. One vessel runoff via anterior tibial artery. 6. Complete resolution of all occlusion and stenosis in SFA and anterior tibial artery after the procedure. Specimens: None EBL: Minimal IV fluids: 100 mL Urine output: None Disposition: The recovery Indications: Peripheral vascular disease of the left lower extremity was a nonhealing foot ulcer. Procedure Patient was brought to the just within later on the table in supine position. After adequate sedation was achieved patient was prepped and draped usual sterile fashion. The ultrasound was used to assess the right common femoral artery it was found to be acceptable for cannulation. No significant calcification was noted. Under ultrasound guidance micropuncture needle was inserted into the common femoral artery. The micropuncture wire was advanced without resistance. The needle was removed and micropuncture sheath was placed. The wire was exchanged for a [employer]on wire. The micropuncture introducer was exchanged to 5 Macanese sheath. The Sos Omni flush catheter was advanced into the aorta. Aortogram was performed. Please see findings for details. Contralateral cannulation was achieved using the Sos Omni flush catheter and a Glidewire. The catheter was brought down to the level of the proximal superficial femoral artery. Left leg runoff was performed. We did not visualize the infrapopliteal arteries well. The vertebral catheter was advanced over the wire into the popliteal artery. The runoff was performed of the infrapopliteal artery. Patient only had 1 vessel runoff and was severely diseased. The patient received 2000 units of heparin. The wire was able to be advanced into the anterior tibial artery and all the way down to the distal portion that was without stenosis. The 5 Macanese sheath was removed and 6 x 45 up and over sheath was placed was a tip in the proximal SFA. The quick cross catheter was advanced into the distal anterior tibial artery. The 4 mm spider filter wire was deployed in the distal anterior tibial artery since this was the only patient runoff and we wanted to make sure the patient did not suffer any embolization. The [employer] one device was used to perform an atherectomy of the distal SFA followed by balloon angioplasty and balloon angioplasty was drug- eluting balloon. The resulting angiogram showed no significant residual stenosis or flow limiting dissection. Same device was used to perform an atherectomy in diseased portion of the anterior tibial artery followed by balloon angioplasty. The completion angiogram showed brisk flow all the way into the foot and no residual stenosis. The filter was successfully recaptured. The Bentson wire was placed through the sheath. The sheath was then pulled back to the level of the right external iliac artery. An angiogram of the right common femoral artery confirmed the patient was a candidate for pro glide device closure. The vessel was successfully closed using 6 Macanese pro glide device. The patient tolerated procedure well. She went to the recovery room in stable condition.
--- NOTE | 2017-05-22 10:26 | Short Stay Summary ---
Short Stay Documentation - History H&P: obtained from office - Allergies and Medications Current Medications: Allergies No Known Allergies Allergy (Unverified 01/24/17 16:13) Home Medications Medication Instructions Recorded Confirmed Last Taken Type Aspirin [Aspirin TAB] 325 mg PO QDAY 08/04/15 01/28/17 01/27/17 09:00 History Atorvastatin Calcium [Lipitor] 20 mg PO QHS 08/04/15 01/28/17 01/27/17 09:00 History Citalopram [celeXA] 20 mg PO DAILY 08/04/15 01/28/17 01/27/17 09:00 History Colchicine 0.6 mg PO DAILY 08/04/15 01/28/17 01/27/17 09:00 History Docusate Sodium [Colace CAP] 100 mg PO BID 08/04/15 01/28/17 01/27/17 19:00 History Donepezil [Aricept] 10 mg PO QDAY 08/04/15 01/28/17 01/27/17 09:00 History Ferrous Sulfate [Feosol 325 MG tab] 325 mg PO QDAY 08/04/15 01/28/17 01/27/17 09 :00 History Glimepiride [Amaryl] 2 mg PO BID 08/04/15 01/28/17 01/27/17 19:00 History Insulin Detemir [Levemir VIAL] 35 unit SQ QHS 08/04/15 01/24/17 Unknown History Linagliptin [Tradjenta] 5 mg PO QDAY 08/04/15 01/28/17 01/27/17 09:00 History Memantine HCl [Namenda] 10 mg PO BID 08/04/15 01/28/17 01/27/17 19:00 History Multivit with Calcium,Iron,Min 1 tab PO DAILY 08/04/15 01/28/17 01/27/17 09:00 History [Multiple Vitamins For Women] Pantoprazole [Protonix TAB] 40 mg PO QDAY 08/04/15 01/28/17 01/27/17 09:00 History Cyclobenzaprine [Flexeril 10 MG 10 mg PO QDAY 12/25/16 01/28/17 01/27/17 09:00 History TAB] Insulin Regular, Human [HumuLIN R] 0 unit SQ ACHS 12/25/16 01/24/17 Unknown History Melatonin/Pyridoxine [Melatonin 3 3 mg PO QHS 12/25/16 01/28/17 01/27/17 19:00 History mg Tablet] Valsartan [Diovan] 160 mg PO BID tablet 01/04/17 01/28/17 01/27/17 19:00 Rx oxyCODONE /ACETAMINOPHEN [Percocet 1 tab PO Q6H PRN #7 tablet 01/04/17 01/24/17 Unknown Rx 5/325 mg] Levofloxacin [Levaquin TAB] 500 mg PO QDAY #9 tablet 02/01/17 Unknown Rx Active Medications Cefazolin Sodium (Ancef/Sterile Water 2 Gm/20 Ml) 2 gm in 20 mls @ 80 mls/hr IV PREOP NR PRN Reason: Protocol Stop: 05/22/17 21:00 Sodium Chloride (Nacl 0.9% 1000 Ml) 1,000 mls @ 42 mls/hr IV DIRECT GRETCHEN Last Admin: 05/22/17 07:00 Dose: 42 mls/hr - Brief post op/procedure progress note Procedure: Pre-operative diagnosis: Nonhealing left foot ulcer. Post-operative diagnosis: Same Procedure name(s): 1. Ultrasound-guided access of the right common femoral artery. 2. Introduction of the catheter into the aorta. 3. Aortogram. 4. Contralateral cannulation of the left SFA. 5. Left leg runoff. 6. Selective cannulation of the left popliteal artery. 7. Left SFA atherectomy using Hawk one device. 8. Left SFA balloon angioplasty using 5 x 16 [place]og[place] balloon. 9. Left SFA balloon angioplasty using 5 x 60 impact drug-eluting balloon. 10. Left anterior tibial artery atherectomy with Hawk one device. 11. Left anterior tibial artery balloon angioplasty using a 3 x 2 10 tapered balloon. 12. Completion angiogram. 13. Closure of the right common femoral artery with 6 [place] pro glide device. 14. Radiologic supervision and interpretation. Surgeon: Isaac Sol MD Personnel Security Specialist: None Anesthesia: Local with IV sedation. Findings 1. No significant stenosis of the aorta, common iliac arteries, external iliac arteries, common femoral arteries. 2. Mid SFA stenosis. 3. Multiple occlusions of anterior tibial artery. 4.Complete occlusion of the peroneal and posterior tibial artery. 5. One vessel runoff via anterior tibial artery. 6. Complete resolution of all occlusion and stenosis in SFA and anterior tibial artery after the procedure. Specimens: None EBL: Minimal IV fluids: 100 mL Urine output: None Disposition: The recovery - Disposition Disposition: [id number] [facility] Short Stay Discharge Plan Activity: advance as tolerated Weight Bearing Status: Full Weight Bearing Diet: regular Wound: open to air Follow up with: CHANDRIKA REGALADO MD [Primary Care Provider] - 7 Days ISAAC SOL MD [Staff Physician] - 14 Days
[2017-05-22 12:19] VITALS: BP 145/70
--- NOTE | 2017-05-22 13:36 | Vascular Lab Report ---
MISCELLANEOUS VESSEL IDENTIFICATION: COMMENTS ON THE SCAN: The right common femoral artery was identified and under real-time ultrasound guidance was cannulated. IMPRESSION: Successful ultrasound guided arterial cannulation.
== END 2017-05-22 12:55 ==
LOC: CATHLABREC 06:09
PROVIDERS: ATTEND Surgery Vascular Surgery
DX: E11.621 Type 2 diabetes mellitus with foot ulcer (principal); L97.529 Non-pressure chronic ulcer of other part of left foot with unspecified severity; E11.51 Type 2 diabetes mellitus with diabetic peripheral angiopathy without gangrene; I70.202 Unspecified atherosclerosis of native arteries of extremities, left leg; E11.42 Type 2 diabetes mellitus with diabetic polyneuropathy; E11.22 Type 2 diabetes mellitus with diabetic chronic kidney disease; I12.9 Hypertensive chronic kidney disease with stage 1 through stage 4 chronic kidney disease, or unspecified chronic kidney disease; E78.00 Pure hypercholesterolemia, unspecified; Z79.899 Other long term (current) drug therapy; Z79.82 Long term (current) use of aspirin; Z79.01 Long term (current) use of anticoagulants; Z79.4 Long term (current) use of insulin; Z86.73 Personal history of transient ischemic attack (TIA), and cerebral infarction without residual deficits
CPT/HCPCS: 36415; 37225; 37229; 75625; 75710; 76937; 80048; 85025; 85610; 85730; 99156; 99157; C1714; C1725; C1760; C1769; C1884; C1887; J0360; J1644; J2250; J3010; J7030; J2997; Q9967